=== PATIENT | male | born 1950 | race Caucasian/White ===

== ENCOUNTER → 2020-05-16 09:53 | Outpatient (CLI) | payer MEDICARE, SELFPAY ==
[2020-05-16 10:17] LABS: Add Manual Diff / Slide Review NO; Basophils Absolute Auto 100 /uL (0-100); Basophils Percent Auto 1.1 % (0-2); Eosinophils Absolute Auto 100 /uL (0-450); Eosinophils Percent Auto 1.7 % (2-4); Hematocrit 46.7 % (41-53); Hemoglobin 15.5 g/dL (13.5-17.5); Lymphocytes Absolute Auto 2000 /uL (1100-4500); Lymphocytes Percent Auto 29.4 % (25-40); Mean Corpuscular HGB Conc 33.1 % (30-36); Mean Corpuscular Hemoglobin 30.1 PG (26-34); Mean Corpuscular Volume 90.8 fL (80-100); Monocytes Absolute Auto 700 /uL (0-900); Monocytes Percent Auto 10.6 % (3-14); Neutrophils Absolute Auto 3900 /uL (1500-7000); Neutrophils Percent Auto 57.2 % (50-75); Platelet Count 219 X10^3/uL (150-400); Red Blood Cell Count 5.14 X10^6/uL (4.5-5.9); Red Cell Distribution Width 13.9 % (11.6-14.8); White Blood Cell Count 6.9 X10^3/uL (4.5-11.0)
[2020-05-16 10:27] LABS: Hemoglobin A1C% w Est Avg Glu 5.8 % (4.0-6.0)
[2020-05-16 10:42] LABS: Alanine Aminotransferase 22 IU/L (<50); Albumin 4.7 g/dL (3.5-5.0); Albumin Globulin Ratio 1.4 (1.0-2.8); Alkaline Phosphatase 92 U/L (38-126); Aspartate Aminotransferase 26 IU/L (17-59); BUN Creatinine Ratio 22.6 (6-22); Bilirubin Total 0.8 mg/dL (0.2-1.3); Blood Urea Nitrogen 24 mg/dL (9-20); Calcium 9.7 mg/dL (8.4-10.2); Carbon Dioxide 31 mmol/L (22-32); Chloride 106 mmol/L (98-107); Cholesterol 198 mg/dL (140-199); Estimated Glomerular Filt Rate > 60.0 mL/min (>60); Globulin 3.4 g/dL (1.7-4.1); Glucose 107 mg/dL (80-110); HDL Cholesterol 46 mg/dL (40-60); HEMOLYSIS < 15 (0-50); LDL Cholesterol Calculated 114 mg/dL (<100); Sodium 141 mmol/L (137-145); Total Protein 8.1 g/dL (6.3-8.2); Triglycerides 191 mg/dL (35-150)
[2020-05-16 11:10] LABS: Prostate Specific Antigen Scrn 0.501 ng/mL (0.1-4.0)
== END ==
PROVIDERS: PCP Family Medicine; Referring Provider Family Medicine; Visit Provider Family Medicine
DX: Z00.00 Encounter for general adult medical examination without abnormal findings (principal)
CPT/HCPCS: 36415; 80053; 80061; 83036; 85025; G0103

== ENCOUNTER → 2020-05-25 13:28 | Outpatient (CLI) | payer MEDICARE, SELFPAY ==
[2020-05-26 16:39] LABS: Fecal Immunochemical Test Negative (Negative)
== END ==
PROVIDERS: PCP Family Medicine; Referring Provider Family Medicine; Visit Provider Family Medicine
DX: Z12.11 Encounter for screening for malignant neoplasm of colon (principal)
CPT/HCPCS: 82274

== ENCOUNTER → 2021-07-28 09:38 | Outpatient (CLI) | payer MEDICARE, SELFPAY ==
[2021-07-28 10:35] LABS: COVID19 -Nasal RAPID Negative (Negative)
== END ==
PROVIDERS: PCP Family Medicine; Visit Provider Physician Assistant
DX: Z20.822 Contact with and (suspected) exposure to COVID-19 (principal)
CPT/HCPCS: 87635; C9803

== ENCOUNTER → 2021-07-31 08:07 | Outpatient (CLI) | payer MEDICARE, SELFPAY ==
--- NOTE | 2021-07-31 09:08 | PM.TREADMILL ---
Cardiac Stress Test Report Referral & Results Date Patient Seen: 07/31/21 Time Patient Seen: 08:45 Requesting provider: Quincy Pat Indication: Fatigue Rest ECG: NSR Procedure Note: Today following both written and verbal informed consent, the patient was exercised according to a standard Kristofer protocol. The patient exercised for a total of 9 minutes 38 seconds achieving a maximum heart rate of 161. Patient's maximum systolic blood pressure was 154. This was an estimated 10.1 METs. Normal hemodynamic response to exercise. Excellent exercise capacity (FA I -30% on active scale). No signs or symptoms of angina. No ST deviations. Increasing PVC frequency at peak exercise with doublets seen near the end of the test. Impression: Low probability for ischemia. However, exercise-induced PVCs are an independent risk factor for cardiac causes of mortality. Discussed AHA guidelines for target heart rate and recommended against vigorous all-out exercise at home. Please note: Actual ECG tracings can be found in the PACS system.
== END ==
PROVIDERS: PCP Family Medicine; Referring Provider Family Medicine; Visit Provider Family Medicine
DX: E78.00 Pure hypercholesterolemia, unspecified (principal); I10 Essential (primary) hypertension; R53.83 Other fatigue
CPT/HCPCS: 93016; 93017; 93018

== ENCOUNTER → 2021-12-21 08:37 | Outpatient (CLI) | payer MEDICARE, SELFPAY ==
[2021-12-21 09:28] LABS: Add Manual Diff / Slide Review NO; Basophils Absolute Auto 100 /uL (0-100); Basophils Percent Auto 1.1 % (0-2); Eosinophils Absolute Auto 200 /uL (0-450); Eosinophils Percent Auto 2.4 % (2-4); Lymphocytes Absolute Auto 2000 /uL (1100-4500); Lymphocytes Percent Auto 30.5 % (25-40); Mean Corpuscular HGB Conc 33.3 % (30-36); Mean Corpuscular Hemoglobin 30.1 PG (26-34); Mean Corpuscular Volume 90.6 fL (80-100); Monocytes Absolute Auto 700 /uL (0-900); Monocytes Percent Auto 10.7 % (3-14); Neutrophils Absolute Auto 3600 /uL (1500-7000); Neutrophils Percent Auto 55.3 % (50-75); Platelet Count 208 X10^3/uL (150-400); Red Blood Cell Count 4.97 X10^6/uL (4.5-5.9); Red Cell Distribution Width 13.8 % (11.6-14.8); White Blood Cell Count 6.6 X10^3/uL (4.5-11.0)
[2021-12-21 10:40] LABS: TSH w/ Reflex to FT4 2.57 uIU/mL (0.47-4.68)
[2021-12-21 10:55] LABS: Alanine Aminotransferase 28 IU/L (<50); Albumin 4.6 g/dL (3.5-5.0); Albumin Globulin Ratio 1.6 (1.0-2.8); Alkaline Phosphatase 72 U/L (38-126); Aspartate Aminotransferase 31 IU/L (17-59); BUN Creatinine Ratio 17.6 (6-22); Bilirubin Total 0.8 mg/dL (0.2-1.3); Blood Urea Nitrogen 19 mg/dL (9-20); Calcium 9.4 mg/dL (8.4-10.2); Carbon Dioxide 27 mmol/L (22-32); Chloride 107 mmol/L (98-107); Cholesterol 187 mg/dL (140-199); Estimated Glomerular Filt Rate > 60.0 mL/min (>60); Globulin 2.9 g/dL (1.7-4.1); Glucose 96 mg/dL (80-110); HDL Cholesterol 46 mg/dL (40-60); HEMOLYSIS < 15 (0-50); LDL Cholesterol Calculated 111 mg/dL (<100); Potassium 4.5 mmol/L (3.4-5.1); Sodium 142 mmol/L (137-145); Total Protein 7.5 g/dL (6.3-8.2); Triglycerides 152 mg/dL (35-150)
== END ==
PROVIDERS: PCP Family Medicine; Referring Provider Family Medicine; Visit Provider Family Medicine
DX: I10 Essential (primary) hypertension (principal); E78.00 Pure hypercholesterolemia, unspecified; N40.1 Benign prostatic hyperplasia with lower urinary tract symptoms; R35.1 Nocturia
CPT/HCPCS: 36415; 80053; 80061; 84443; 85025

== ENCOUNTER → 2022-05-14 11:11 | Outpatient (CLI) | payer MEDICARE, SELFPAY ==
[2022-05-14 14:04] LABS: COVID19 -Nasal RAPID Negative (Negative)
== END ==
PROVIDERS: PCP Family Medicine; Visit Provider Surgery
DX: Z20.822 Contact with and (suspected) exposure to COVID-19 (principal); Z01.812 Encounter for preprocedural laboratory examination
CPT/HCPCS: 87635; C9803

== ENCOUNTER 2022-05-15 07:15 | Day surgery (SDC) | payer MEDICARE, SELFPAY ==
[2022-05-11 11:36] VITALS: BMI 29.7
--- NOTE | 2022-05-15 | PATH_ITS ---
[facility] Accession Number: [id number] . 01 Material submitted: . back - RIGHT UPPER BACK MASS . 01 Clinical history: . EXCISIONAL BX OF R BACK MASS . 01 Diagnosis: Right Upper Back, Excision: Epidermal inclusion cyst. MRV 05/18/2022 1544 Local . 01 Electronically signed: . Clayton Phillips MD, Dermatopathologist NPI- [id number] . 01 Gross description: . RIGHT UPPER BACK MASS: Received in formalin is 1 fragment of bradley soft tissue measuring 3.0 x 3.0 x 2.8 cm. Tissue is inked. Specimen is sectioned and submitted in call center representative sections in 1 cassette. /[facility] 05/15/2022 2343 Local . 01 Pathologist provided ICD-10: L72.0 . 01 CPT . 513405 Specimen Comment: A courtesy copy of this report has been sent to [phone] Performed at: 01 [facility] [address] [place] [address], [place], [place] [id number] MD Jarred Aguilar MD Phone: [phone]
[2022-05-15 07:32] VITALS: BP 143/87; PULSE 86; RESP 20; TEMP 36.2; O2SAT 98; BMI 29.7
[2022-05-15] MEDS: LACTATED RINGERS 1,000 ML 42 ML IV (07:45)
--- NOTE | 2022-05-15 08:18 | PM.PREOP ---
Pre-operative Note COVID-19 COVID-19 status: Negative Result date/Date tested (Pos, Neg/Pending): 05/14/22 Interval Note History & Physical reviewed/Exam performed by Physician: Yes Changes to H&P: No ASA Class (for procedural sedation): II
[2022-05-15] MEDS: CEFAZOLIN 2 GM/100 ML PREMIX 100 ML IV (08:53)
--- NOTE | 2022-05-15 09:01 | SUR.OPER ---
Left Lateral on a ring bag, head on pillow, gel axillary roll in place, bottom leg bent with gel pad under knee to foot, upper leg straight and supported with pillows. Upper arm supported by 2 pillows and secured over bottom arm to padded arm board. Gel pad placed under left arm. Safety belt at hip, tape over blanket lower legs.
[2022-05-15] MEDS: LIDOCAINE 1% W/EPI 20 ML INJ (09:09)
[2022-05-15 10:01] VITALS: BP 141/79; PULSE 79; RESP 15; TEMP 36.3; O2SAT 96
--- NOTE | 2022-05-15 10:01 | P.OP_ITS ---
Operative Date/Time/Diagnoses Date of procedure: 05/15/22 Time of procedure: 10:01 Pre-op diagnosis: Right upper back mass Procedure & Clinicians Procedure: Excisional biopsy of right upper back mass Same procedure as scheduled: Yes Surgeon: Martin Garcia Operative Notes Procedure in detail: The patient was brought to the operating room and general anesthesia was induced via LMA. He received Ancef. Once he was asleep he was repositioned to the left lateral decubitus position with the right side. Back was prepped and draped in the usual fashion and a time-out was performed. Lidocaine with epinephrine was injected into the skin and subcutaneous adipose tissue over the mass. A 10 cm axial incision was made over the mass. We started to dissect the mass free from dermis and subcutaneous adipose tissue. We did perforate the mass in a few different spots and some thick, foul-smelling, cheesy substance extruded suggesting that the mass was a sebaceous cyst. Once the mass was completely excised and passed off the field we injected additional lidocaine with epinephrine into the deep aspect of the wound. Few bleeding points were cauterized. The wound cavity was irrigated with saline. Hemostasis was observed. We then closed the incision with multiple interrupted 3-0 Vicryl dermal sutures followed by a running 4 Monocryl subcuticular closure. Steri- Strips and Telfa were applied over wound. EBL: 10 mL The patient was awakened and brought to recovery. Post-operative Condition: stable Disposition: PACU
[2022-05-15 10:06] VITALS: BP 130/75; PULSE 73; RESP 14; O2SAT 94
[2022-05-15 10:11] VITALS: BP 122/72; PULSE 74; RESP 14; O2SAT 94
[2022-05-15 10:16] VITALS: BP 130/75; PULSE 71; RESP 16; O2SAT 95
[2022-05-15 10:21] VITALS: BP 117/77; PULSE 73; RESP 16; O2SAT 100
== END 2022-05-15 10:47 | disposition home or self-care (01) ==
PROVIDERS: PCP Family Medicine; Referring Provider Surgery; Visit Provider Surgery
PROC: (CPT 11406; principal; 2022-05-15 08:45)
DX: L72.0 Epidermal cyst (principal); I10 Essential (primary) hypertension; R20.8 Other disturbances of skin sensation
CPT/HCPCS: 11406; 12034; 00400; J0690; J1100; J1885; J2405; J2704

== ENCOUNTER → 2022-11-23 10:30 | Outpatient (CLI) | payer MEDICARE, SELFPAY ==
[2022-11-23 12:40] LABS: Add Manual Diff / Slide Review NO; Basophils Absolute Auto 0 /uL (0-100); Basophils Percent Auto 0.7 % (0-2); Eosinophils Absolute Auto 100 /uL (0-450); Eosinophils Percent Auto 1.7 % (2-4); Hemoglobin 16.1 g/dL (13.5-17.5); Lymphocytes Absolute Auto 2200 /uL (1100-4500); Lymphocytes Percent Auto 30.5 % (25-40); Mean Corpuscular HGB Conc 32.8 % (30-36); Mean Corpuscular Hemoglobin 29.9 PG (26-34); Monocytes Absolute Auto 800 /uL (0-900); Monocytes Percent Auto 10.7 % (3-14); Neutrophils Absolute Auto 4100 /uL (1500-7000); Neutrophils Percent Auto 56.4 % (50-75); Platelet Count 244 X10^3/uL (150-400); Red Blood Cell Count 5.39 X10^6/uL (4.5-5.9); Red Cell Distribution Width 13.6 % (11.6-14.8); White Blood Cell Count 7.2 X10^3/uL (4.5-11.0)
[2022-11-23 12:48] LABS: Alanine Aminotransferase 28 IU/L (<50); Albumin 4.7 g/dL (3.5-5.0); Albumin Globulin Ratio 1.3 (1.0-2.8); Alkaline Phosphatase 94 U/L (38-126); Aspartate Aminotransferase 29 IU/L (17-59); BUN Creatinine Ratio 16.4 (6-22); Bilirubin Total 0.8 mg/dL (0.2-1.3); Blood Urea Nitrogen 18 mg/dL (9-20); Calcium 9.6 mg/dL (8.4-10.2); Carbon Dioxide 29 mmol/L (22-32); Chloride 102 mmol/L (98-107); Cholesterol 211 mg/dL (140-199); Estimated Glomerular Filt Rate > 60 mL/min (>60); Globulin 3.7 g/dL (1.7-4.1); Glucose 96 mg/dL (80-110); HDL Cholesterol 47 mg/dL (40-60); HEMOLYSIS 33 (0-50); LDL Cholesterol Calculated 126 mg/dL (<100); Potassium 4.7 mmol/L (3.4-5.1); Sodium 140 mmol/L (137-145); Total Protein 8.4 g/dL (6.3-8.2); Triglycerides 192 mg/dL (35-150); Uric Acid 5.5 mg/dL (3.5-8.5)
[2022-11-23 13:13] LABS: Prostate Specific Antigen Scrn 0.738 ng/mL (0.1-4.0)
[2022-11-23 13:18] LABS: TSH w/ Reflex to FT4 2.96 uIU/mL (0.47-4.68)
== END ==
PROVIDERS: PCP Family Medicine; Referring Provider Family Medicine; Visit Provider Family Medicine
DX: Z00.00 Encounter for general adult medical examination without abnormal findings (principal); E78.00 Pure hypercholesterolemia, unspecified; Z12.5 Encounter for screening for malignant neoplasm of prostate; I10 Essential (primary) hypertension; N40.1 Benign prostatic hyperplasia with lower urinary tract symptoms; R35.1 Nocturia; Z85.828 Personal history of other malignant neoplasm of skin
CPT/HCPCS: 36415; 80053; 80061; 84443; 84550; 85025; G0103

== ENCOUNTER 2023-02-07 12:36 | Day surgery (SDC) | payer MEDICARE, SELFPAY ==
--- NOTE | 2023-02-07 | PATH_ITS ---
[facility] Accession Number: [id number] No. of containers..02 Tissue . 01 Material submitted: . PART A: cecum - CECAL POLYP PART B: colon - ASCENDING POLYP . 01 Diagnosis: A. Cecum, Polypectomy: Sessile serrated adenoma. . B. Ascending Colon, Polypectomy: Colonic mucosa with no diagnostic abnormality, consistent with polypoid redundancy. Additional levels were examined. Negative for dysplasia and malignancy. [facility] 02/13/2023 1454 Local . 01 Electronically signed: . Hanane Sharpe MD, Pathologist NPI- [id number] . 01 Gross description: . Part A: CECAL POLYP: Received in formalin is 1 fragment(s) of bradley, soft tissue measuring 0.5 x 0.4 x 0.1 cm submitted entirely in 1 cassette(s) Part B: ASCENDING POLYP: Received in formalin is 1 fragment(s) of bradley, soft tissue measuring 0.2 x 0.2 x 0.2 cm submitted entirely in 1 cassette(s) /[facility] 02/08/2023 1329 Local . 01 Pathologist provided ICD-10: D12.0 . 01 CPT . 274933, 031665 Specimen Comment: A courtesy copy of this report has been sent to [phone] Performed at: 01 [facility] [address] [place] [address], [place], [place] [id number] MD Jarred Aguilar MD Phone: [phone]
[2023-02-07 12:53] VITALS: BP 154/91; PULSE 83; RESP 19; TEMP 36.1; O2SAT 96; BMI 29.0
[2023-02-07] MEDS: LACTATED RINGERS 1,000 ML 42 ML IV (13:04)
--- NOTE | 2023-02-07 13:19 | PM.HP.1 ---
History of Present Illness History of Present Illness Date Patient Seen: 02/07/23 Time Patient Seen: 13:19 Chief complaint: Colonoscopy Narrative: Aakash is here for his colonoscopy. He thinks it has been over 10 years since his last one. He does not believe he has ever had polyps removed. He has no known family history of colon cancer. [facility] Medical History (Updated 02/07/23 @ 13:20 by Martin Garcia MD) Ankle pain (2011) Chickenpox (~1949) COVID-19 virus infection (~02/2022) Erectile dysfunction Gout (2016) Gout History of basal cell carcinoma Hypertension Left knee pain Measles Plantar warts (~1979) Sebaceous cyst Skin cancer (2012) Well adult exam Surgical History Hx of knee surgery (~2011) Family History Mother Age: 92 Heart disease High cholesterol Father No problems noted. Grandmother No problems noted. Social History household members: spouse Smoking Status: Never smoker alcohol intake: current Meds Home Medications and Allergies Home Medications Medication Instructions Recorded Confirmed Type losartan 25 mg tablet 25 mg PO DAILY #90 tabs 09/19/22 02/07/23 Rx tamsulosin 0.4 mg capsule (Flomax) 0.4 mg PO BEDTIME #90 caps 09/19/22 02/07/23 Rx sildenafil 100 mg tablet 100 mg PO DAILY PRN sexual 11/30/22 02/07/23 Rx activity #30 tabs sodium sul 1.479 gram-potas ch See Rx Instructions PO PER PKG DIR 01/04/23 Rx 0.188 gram-magnes sul 0.225 gram #24 tabs tablet (Sutab) Allergies Allergy/AdvReac Type Severity Reaction Status Date / Time No Known Drug Allergies Allergy Verified 02/07/23 13:05 Exam Vital Signs (past 8 hours): - 02/07/23 12:53 Temperature 96.9 F L Pulse Rate 83 Respiratory Rate 19 Blood Pressure 154/91 H Pulse Oximetry 96 Oxygen Delivery Method Room Air Oxygen Delivery Method Room Air Const General: healthy appearing Assessment & Plan Assessment and plan (1) Colon cancer screening: Status: Acute Plan 72-year-old man here for colonoscopy. No family history. Reviewed the risks and benefits and he would like to proceed.
[2023-02-07 14:32] VITALS: BP 92/60; PULSE 67; RESP 14; TEMP 36.2; O2SAT 99
--- NOTE | 2023-02-07 14:35 | PM.OP.COLON ---
Operative Date/Time/Diagnoses Date of procedure: 02/07/23 Time of procedure: 14:36 Pre-op diagnosis: Colon cancer screening Post-op diagnosis: same Procedure & Clinicians Study performed: Colonoscopy Same procedure as scheduled: Yes Surgeon: Martin Garcia Procedure Notes Procedure in detail: Surgeon: Martin Garcia MD Anesthesia: Davian Man MD Procedure: The patient was brought to the endoscopy suite, placed in left lateral decubitus position. The patient was connected to monitoring devices. A time-out was performed. Sedation was administered. Once the patient was adequately sedated, a digital rectal exam was performed and was normal. The scope was then inserted and advanced to the cecum where the appendiceal orifice was identified and photographed. The scope was then slowly withdrawn over greater than 6 minutes. The mucosa was thoroughly inspected. There was a 5 mm polyp in the cecum removed with a cold snare. There was a 5 mm polyp in the ascending colon removed with a cold snare. The rest of the colon was normal. The scope was retroflexed in the rectum. No other abnormalities were seen. The scope was straightened and removed. The patient was awakened and brought to recovery. Scope withdrawal time: 13 minutes Sedation time: 16 minutes EBL: 3 mL Findings: A 5 mm polyp in the cecum and a 5 mm polyp in the ascending colon Post-procedure Disposition: PACU
[2023-02-07 14:37] VITALS: BP 105/76; PULSE 65; RESP 17; O2SAT 93
[2023-02-07 14:43] VITALS: BP 116/80; PULSE 70; RESP 17; O2SAT 92
[2023-02-07 14:47] VITALS: BP 116/85; PULSE 62; RESP 19; TEMP 36.6; O2SAT 95
[2023-02-07 14:50] VITALS: BP 110/85; PULSE 62; RESP 22; O2SAT 97
== END 2023-02-07 15:00 | disposition home or self-care (01) ==
PROVIDERS: PCP Family Medicine; Referring Provider Surgery; Visit Provider Surgery
PROC: 0DJD8ZZ Inspection of Lower Intestinal Tract, Via Natural or Artificial Opening Endoscopic (ICD-10-PCS; CPT 45378; principal; 2023-02-07 13:45)
DX: Z12.11 Encounter for screening for malignant neoplasm of colon (principal); D12.0 Benign neoplasm of cecum
CPT/HCPCS: 45385; J2704; J3010

== ENCOUNTER → 2023-05-09 | Outpatient (CLI) | payer MEDICARE, SELFPAY ==
--- NOTE | 2023-05-09 10:11 | DI.RAD.S_ITS ---
PROCEDURE: XR LUMBAR SPINE 2-3V INDICATIONS: worsening low back pain TECHNIQUE: 3 views of the lumbar spine were acquired. COMPARISON: None. FINDINGS: Bones: 5 xgv-[id number]-npylpon vertebrae are present. There is normal bony alignment. Moderate degenerative changes at L5-S1 and facet hypertrophy. No vertebral body compression fractures. No suspicious bony lesions. Soft tissues: Overlying bowel gas pattern is normal. Vascular calcifications are present. IMPRESSION: No acute osseous abnormality. Moderate degenerative changes at L5-S1. Approved by: Nila Cam M.D. on 05/20/2023 at 15:24
== END ==
PROVIDERS: PCP Family Medicine; Referring Provider Family Medicine; Visit Provider Family Medicine
DX: M54.50 Low back pain, unspecified (principal); M47.817 Spondylosis without myelopathy or radiculopathy, lumbosacral region
CPT/HCPCS: 72100

== ENCOUNTER → 2023-12-17 09:07 | Outpatient (CLI) | payer MEDICARE, SELFPAY ==
[2023-12-17 10:09] LABS: Add Manual Diff / Slide Review NO; Basophils Absolute Auto 100 /uL (0-100); Basophils Percent Auto 1.1 % (0-2); Eosinophils Absolute Auto 100 /uL (0-450); Hematocrit 45.1 % (41-53); Hemoglobin 15.2 g/dL (13.5-17.5); Lymphocytes Absolute Auto 2000 /uL (1100-4500); Lymphocytes Percent Auto 32.8 % (25-40); Mean Corpuscular HGB Conc 33.8 % (30-36); Mean Corpuscular Hemoglobin 30.7 PG (26-34); Monocytes Absolute Auto 600 /uL (0-900); Monocytes Percent Auto 10.7 % (3-14); Neutrophils Absolute Auto 3200 /uL (1500-7000); Neutrophils Percent Auto 53.4 % (50-75); Platelet Count 223 X10^3/uL (150-400); Red Blood Cell Count 4.95 X10^6/uL (4.5-5.9); Red Cell Distribution Width 13.5 % (11.6-14.8)
[2023-12-17 10:43] LABS: Alanine Aminotransferase 30 IU/L (<50); Albumin 4.3 g/dL (3.5-5.0); Albumin Globulin Ratio 1.4 (1.0-2.8); Alkaline Phosphatase 84 U/L (38-126); Aspartate Aminotransferase 31 IU/L (17-59); BUN Creatinine Ratio 16.7 (6-22); Bilirubin Total 0.9 mg/dL (0.2-1.3); Blood Urea Nitrogen 18 mg/dL (9-20); Calcium 9.4 mg/dL (8.4-10.2); Carbon Dioxide 25 mmol/L (22-32); Chloride 109 mmol/L (98-107); Estimated Glomerular Filt Rate > 60 mL/min (>60); Globulin 3.1 g/dL (1.7-4.1); Glucose 92 mg/dL (80-110); HEMOLYSIS < 15 (0-50); Potassium 4.4 mmol/L (3.4-5.1); Sodium 140 mmol/L (137-145); Total Protein 7.4 g/dL (6.3-8.2); Uric Acid 5.5 mg/dL (3.5-8.5)
[2023-12-17 11:13] LABS: Prostate Specific Antigen Scrn 0.833 ng/mL (0.1-4.0)
== END ==
PROVIDERS: PCP Family Medicine; Referring Provider Family Medicine; Visit Provider Family Medicine
DX: R35.1 Nocturia (principal); Z12.5 Encounter for screening for malignant neoplasm of prostate; N40.1 Benign prostatic hyperplasia with lower urinary tract symptoms; I10 Essential (primary) hypertension; E78.00 Pure hypercholesterolemia, unspecified; M10.9 Gout, unspecified
CPT/HCPCS: 36415; 80053; 84550; 85025; G0103

== ENCOUNTER → 2024-02-14 15:22 | Outpatient (CLI) | payer MEDICARE, SELFPAY ==
--- NOTE | 2024-02-14 15:24 | DI.RAD.S_ITS ---
PROCEDURE: XR SHOULDER RT MIN 2V INDICATIONS: R shoulder xray TECHNIQUE: 3 views of the shoulder were acquired. COMPARISON: None. FINDINGS: Bones: No fractures or dislocations. AC joint hypertrophy with moderate downward going component. No suspicious bony lesions. Visualized ribs appear intact. Soft tissues: No suspicious soft tissue calcifications. IMPRESSION: AC joint hypertrophy with moderate downward going component. No acute bony abnormality. Dictated by: Vincenzo Prince M.D. on 02/14/2024 at 17:52 Approved by: Vincenzo Prince M.D. on 02/14/2024 at 17:53
== END ==
PROVIDERS: PCP Family Medicine; Referring Provider Family Medicine; Visit Provider Family Medicine
DX: M25.511 Pain in right shoulder (principal)
CPT/HCPCS: 73030

== ENCOUNTER 2024-07-14 13:45 | Outpatient (RCR) | payer MEDICARE, SELFPAY ==
--- NOTE | 2024-05-27 17:34 | PT.OIE ---
Current Diagnoses Pain in right shoulder (05/27/24) Stiffness of right shoulder, not elsewhere classified (05/27/24) Other shoulder lesions, right shoulder (05/27/24) Past Medical History (Last Reviewed 02/14/24 @ 15:09 by Quincy Pat DO) Ankle pain (2011) Chickenpox (~1950) COVID-19 virus infection (~02/2022) Erectile dysfunction Gout (2016) Gout History of basal cell carcinoma Hypertension Left knee pain Low back pain Measles Plantar warts (~1979) Right rotator cuff tendinitis Sebaceous cyst Skin cancer (2012) Testicular pain, right Well adult exam Past Surgical History (Last Reviewed 02/14/24 @ 15:09 by Quincy Pat DO) Hx of knee surgery (~2011) Visit Care Team Role Provider Type Quincy Pat DO Attending Provider Physician Family Provider Primary Care Provider Referring Provider Specialty: Family Practice Address: [address] [place] [address] Email: [email or web address] Physical Therapy Initial Evaluation PT-OP-A Visit Information Start: 05/27/24 16:54 Freq: Status: Active Protocol: Document 05/27/24 13:45 DCW (Rec: 05/27/24 17:25 [facility] [id number]) Out-Patient Physical Therapy Visit Information Visit Information Visit Type Initial Evaluation Visit Start Time 13:45 Visit Stop Time 14:30 Visit Number 1 Number of PROSTHETIC AIDE Visits 0 Evaluation Information Evaluation Date 05/27/24 PT-OP-B Current Condition Start: 05/27/24 16:54 Freq: Status: Active Protocol: Document 05/27/24 13:45 DCW (Rec: 05/27/24 17:25 [facility] [id number]) Current Condition History of Current Condition Onset Date Six month history Current Complaints Right shoulder pain History of Current Condition Pt is a 74 year old male presenting with a six month history of right shoulder pain . Pt reports he doesn't remember a specific injury, but does note around the time his pain began, he had been working on tearing down and putting back up a car port. Shoulder has improved a bit since the pain began in October, but is still quite limited with overhead motion, and notes his shoulder limits his golf swing. Admits that even lifting a coffee cup with his right arm is a bit of a struggle. Pain and stiffness is worse in the morning, admits that he has to use his left hand to lift his right arm up, but it eases up throughout the day, and he gets more use out of it. Prior Treatments and Tests Shoulder x-ray: IMPRESSION: AC joint hypertrophy with moderate downward going component. No acute bony abnormality. per Vincenzo Prince M.D. on 02/14/2024 Treatment Goals Patient/Caregiver Goals Improve R shoulder function PT-OP-C Subjective Start: 05/27/24 16:54 Freq: Status: Active Protocol: Document 05/27/24 13:45 DCW (Rec: 05/27/24 17:25 DCW [id number]) OP-PT Subjective Patient Comments Patient Comments It's a little painful to the front, but it's worse lifting to the side. Patient Reported Progress Improving Patient Questionnaires Quick Dash- Upper Extremity Quick Dash UE Score 20.45% Quick Dash UE Impairment 20 to 39% Impaired (Score 20- 39) PT-OP-E Functional Tests Start: 05/27/24 16:54 Freq: Status: Active Protocol: Document 05/27/24 13:45 DCW (Rec: 05/27/24 17:25 DCW [id number]) Functional Tests Apley's Scratch Test Action 1- Left Posterior opposite shoulder Action 1- Right Lateral opposite shoulder Action 2- Left T4 Action 2- Right T4 Action 3- Left T6 Action 3- Right T9 PT-OP-K Range of Motion Start: 05/27/24 16:54 Freq: Status: Active Protocol: Document 05/27/24 13:45 DCW (Rec: 05/27/24 17:25 DCW [id number]) Shoulder Goniometric Range of Motion Shoulder Right Passive Testing Position Supine Flexion 160 Abduction 160 External Rotation at 45 degrees 45 Abduction Internal Rotation 55 Right Active Testing Position Sitting Flexion 110 Abduction 103 External Rotation at 0 degrees Abduction 66 Internal Rotation Behind Back (text) T9 Left Active Testing Position Sitting Flexion 147 Abduction 139 External Rotation at 0 degrees Abduction 62 Internal Rotation Behind Back (text) T6 PT-OP-L Special Tests Start: 05/27/24 16:54 Freq: Status: Active Protocol: Document 05/27/24 13:45 DCW (Rec: 05/27/24 17:25 [facility] [id number]) Special Tests Shoulder Special Tests Sulcus Test Results Negative Passive ER Rotator Cuff Test Results Negative Painful Arc Test Results Positive R Lift-Off Rotator Cuff Test Results Positive R Grind Labrum Test Results Negative [place] Impingement Test Results Negative Empty Can Test Results Negative Drop Arm Rotator Cuff Test Results Positive R Clunk Test Test Results Negative Belly Press Test Results Negative Apprehension Test Test Results Positive R PT-OP-M Strength Start: 05/27/24 16:54 Freq: Status: Active Protocol: Document 05/27/24 13:45 DCW (Rec: 05/27/24 17:25 [facility] [id number]) Shoulder Strength Shoulder Manual Muscle Testing Right Flexion 3- Fair- Abduction (C5) 3- Fair- External Rotation 3 Fair Internal Rotation 5 Normal Left Flexion 4 Good Abduction (C5) 4 Good External Rotation 5 Normal Internal Rotation 5 Normal PT-OP-Q Treatments Start: 05/27/24 16:54 Freq: Status: Active Protocol: Document 05/27/24 13:45 DCW (Rec: 05/27/24 17:25 [facility] [id number]) Therapeutic Exercises Standing Exercises Wall slides Standing Exercise Name Wall slide Side right Abduction Standing Exercise Name Shoulder Abduction Side right Resistance Lv 3 Comments Pain-free ROM Flexion Standing Exercise Name Shoulder Flexion Side right Resistance Lv 3 Comments Pain-free ROM Extension Standing Exercise Name Shoulder Extension Side bilateral Resistance Lv 3 Rows Standing Exercise Name Rows Side bilateral Resistance Lv 3 PT-OP-T Assessment and Plan Start: 05/27/24 16:54 Freq: Status: Active Protocol: Document 05/27/24 13:45 DCW (Rec: 05/27/24 17:34 [facility] [id number]) Physical Therapy Assessment Rehab Potential Rehabilitation Potential Good Evaluation Complexity Number of Personal Factors/Comorbidities 1-2 Number of Body Systems Impaired 4 or More Clinical Presentation at Evaluation Stable Impairments Impairments Activity Tolerance,Functional Activities,Functional Mobility ,Pain,ROM,Strength Goals Three Impairment Pt displays weakness in R shoulder, with MMT 3-/5 in flexion and abduction Penitentiary Goal (LTG) Pt to demonstrate right shoulder MMT of at least 4/5 with flexion, abduction, and external rotation in order to improve right GH joint stability LTG Duration 07/27/24 Two Impairment Right shoulder AROM limited to 110? flexion and 103? abduction Unloader Goal (LTG) Pt to improve pain-free right shoulder ROM to >120? 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 LTG Duration 07/27/24 One Impairment Pt does not have an appropriate home exercise program Short Term Goal (STG) Pt to be independent and compliant with an appropriate HEP STG Duration 06/27/24 Assessment Summary Assessment Pt presents with signs and symptoms consistent with a referring diagnosis. Special testing today shows potential for involvement of supraspinatus, with positive drop arm and painful arc tests , as well as more limitations to right shoulder abduction. 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 If pt does not progress as expected, my benefit from advanced axial imaging in order to rule in or rule out potential soft tissue damage. Physical Therapy Plan Frequency and Duration Frequency of Treatment 2x/Week Plan of Care Start Date 05/27/24 Plan of Care End Date 07/27/24 Therapeutic Interventions Therapeutic Interventions Home Exercise Program,Joint Mobilizations,Manual Therapy, Neuromuscular Re-education, Patient/Caregiver Education, Self-Care/Home Management,Soft Tissue Mobilization, Therapeutic Activities, Therapeutic Exercises Modalities Cold Pack/Ice Massage,Electric Stimulation,Hot Packs, Ultrasound Next Visit Focus/Plan Next Note Type Treatment Note Next Visit Plan PROM, AROM, shoulder strengthening, joint stabilization
--- NOTE | 2024-05-27 17:35 | PT.OPPOC ---
Physical, Occupational & Speech Therapy At [facility] Current Diagnoses Pain in right shoulder (05/27/24) Stiffness of right shoulder, not elsewhere classified (05/27/24) Other shoulder lesions, right shoulder (05/27/24) Visit Care Team Role Provider Type Quincy Pat DO Attending Provider Physician Family Provider Primary Care Provider Referring Provider Specialty: [facility] Practice Address: [address] [place] [address], [facility] Email: [email or web address] Plan Of Care PT-OP-B Current Condition Start: 05/27/24 16:54 Freq: Status: Active Protocol: Document 05/27/24 13:45 DCW (Rec: 05/27/24 17:25 DCW [id number]) Current Condition History of Current Condition Onset Date Six month history Current Complaints Right shoulder pain History of Current Condition Pt is a 74 year old male presenting with a six month history of right shoulder pain . Pt reports he doesn't remember a specific injury, but does note around the time his pain began, he had been working on tearing down and putting back up a car port. Shoulder has improved a bit since the pain began in October, but is still quite limited with overhead motion, and notes his shoulder limits his golf swing. Admits that even lifting a coffee cup with his right arm is a bit of a struggle. Pain and stiffness is worse in the morning, admits that he has to use his left hand to lift his right arm up, but it eases up throughout the day, and he gets more use out of it. Prior Treatments and Tests Shoulder x-ray: IMPRESSION: AC joint hypertrophy with moderate downward going component. No acute bony abnormality. per Vincenzo Prince M.D. on 02/14/2024 Treatment Goals Patient/Caregiver Goals Improve R shoulder function PT-OP-T Assessment and Plan Start: 05/27/24 16:54 Freq: Status: Active Protocol: Document 05/27/24 13:45 DCW (Rec: 05/27/24 17:34 DCW [id number]) Physical Therapy Assessment Rehab Potential Rehabilitation Potential Good Evaluation Complexity Number of Personal Factors/Comorbidities 1-2 Number of Body Systems Impaired 4 or More Clinical Presentation at Evaluation Stable Impairments Impairments Activity Tolerance,Functional Activities,Functional Mobility ,Pain,ROM,Strength Goals Three Impairment Pt displays weakness in R shoulder, with MMT 3-/5 in flexion and abduction Retirement Goal (LTG) Pt to demonstrate right shoulder MMT of at least 4/5 with flexion, abduction, and external rotation in order to improve right GH joint stability LTG Duration 07/27/24 Two Impairment Right shoulder AROM limited to 110? flexion and 103? abduction Cutter Down Goal (LTG) Pt to improve pain-free right shoulder ROM to >120? 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 LTG Duration 07/27/24 One Impairment Pt does not have an appropriate home exercise program Short Term Goal (STG) Pt to be independent and compliant with an appropriate HEP STG Duration 06/27/24 Assessment Summary Assessment Pt presents with signs and symptoms consistent with a referring diagnosis. Special testing today shows potential for involvement of supraspinatus, with positive drop arm and painful arc tests , as well as more limitations to right shoulder abduction. 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 If pt does not progress as expected, my benefit from advanced axial imaging in order to rule in or rule out potential soft tissue damage. Physical Therapy Plan Frequency and Duration Frequency of Treatment 2x/Week Plan of Care Start Date 05/27/24 Plan of Care End Date 07/27/24 Therapeutic Interventions Therapeutic Interventions Home Exercise Program,Joint Mobilizations,Manual Therapy, Neuromuscular Re-education, Patient/Caregiver Education, Self-Care/Home Management,Soft Tissue Mobilization, Therapeutic Activities, Therapeutic Exercises Modalities Cold Pack/Ice Massage,Electric Stimulation,Hot Packs, Ultrasound Next Visit Focus/Plan Next Note Type Treatment Note Next Visit Plan PROM, AROM, shoulder strengthening, joint stabilization Plan of Care Dates Plan of Care Start Date 05/27/24 Plan of Care End Date 07/27/24 Electronically Signed by: Fortino Vila, PT 05/27/24 8547 If you are in agreement with this Plan of Care, please return a signed and dated copy. I have reviewed this Plan of Care and certify that the skilled therapy services above are required to meet the patient?s needs. Physician Signature Date Printed Name and Credentials Clinical Instructor Signature Printed Name and Credentials
--- NOTE | 2024-05-29 10:29 | PT.OTN ---
Current Diagnoses Pain in right shoulder (05/29/24) Stiffness of right shoulder, not elsewhere classified (05/29/24) Other shoulder lesions, right shoulder (05/29/24) Physical Therapy Treatment Note PT-OP-A Visit Information Start: 05/27/24 16:54 Freq: Status: Active Protocol: Document 05/29/24 09:45 DCW (Rec: 05/29/24 10:29 DCW [id number]) Out-Patient Physical Therapy Visit Information Visit Information Visit Type Treatment Note Visit Start Time 09:45 Visit Stop Time 10:30 Visit Number 2 Number of ELECTRICAL MAINTENANCE TECHNICIAN Visits 0 Evaluation Information Evaluation Date 05/27/24 PT-OP-B Current Condition Start: 05/27/24 16:54 Freq: Status: Active Protocol: Document 05/27/24 13:45 DCW (Rec: 05/27/24 17:25 DCW [id number]) Current Condition History of Current Condition Onset Date Six month history Current Complaints Right shoulder pain History of Current Condition Pt is a 74 year old male presenting with a six month history of right shoulder pain . Pt reports he doesn't remember a specific injury, but does note around the time his pain began, he had been working on tearing down and putting back up a car port. Shoulder has improved a bit since the pain began in October, but is still quite limited with overhead motion, and notes his shoulder limits his golf swing. Admits that even lifting a coffee cup with his right arm is a bit of a struggle. Pain and stiffness is worse in the morning, admits that he has to use his left hand to lift his right arm up, but it eases up throughout the day, and he gets more use out of it. Prior Treatments and Tests Shoulder x-ray: IMPRESSION: AC joint hypertrophy with moderate downward going component. No acute bony abnormality. per Vincenzo Prince M.D. on 02/14/2024 Treatment Goals Patient/Caregiver Goals Improve R shoulder function PT-OP-C Subjective Start: 05/27/24 16:54 Freq: Status: Active Protocol: Document 05/29/24 09:45 DCW (Rec: 05/29/24 10:29 DCW [id number]) OP-PT Subjective Patient Comments Patient Comments Pt notes his shoulder was bothering him quite a bit last night, feeling slightly better today. Notes HEP doesn' t seem to bother him much. PT-OP-E Functional Tests Start: 05/27/24 16:54 Freq: Status: Active Protocol: Document 05/27/24 13:45 DCW (Rec: 05/27/24 17:25 DCW [id number]) Functional Tests Apley's Scratch Test Action 1- Left Posterior opposite shoulder Action 1- Right Lateral opposite shoulder Action 2- Left T4 Action 2- Right T4 Action 3- Left T6 Action 3- Right T9 PT-OP-K Range of Motion Start: 05/27/24 16:54 Freq: Status: Active Protocol: Document 05/27/24 13:45 DCW (Rec: 05/27/24 17:25 DCW [id number]) Shoulder Goniometric Range of Motion Shoulder Right Passive Testing Position Supine Flexion 160 Abduction 160 External Rotation at 45 degrees 45 Abduction Internal Rotation 55 Right Active Testing Position Sitting Flexion 110 Abduction 103 External Rotation at 0 degrees Abduction 66 Internal Rotation Behind Back (text) T9 Left Active Testing Position Sitting Flexion 147 Abduction 139 External Rotation at 0 degrees Abduction 62 Internal Rotation Behind Back (text) T6 PT-OP-L Special Tests Start: 05/27/24 16:54 Freq: Status: Active Protocol: Document 05/27/24 13:45 DCW (Rec: 05/27/24 17:25 DCW [id number]) Special Tests Shoulder Special Tests Sulcus Test Results Negative Passive ER Rotator Cuff Test Results Negative Painful Arc Test Results Positive R Lift-Off Rotator Cuff Test Results Positive R Grind Labrum Test Results Negative [place] Impingement Test Results Negative Empty Can Test Results Negative Drop Arm Rotator Cuff Test Results Positive R Clunk Test Test Results Negative Belly Press Test Results Negative Apprehension Test Test Results Positive R PT-OP-M Strength Start: 05/27/24 16:54 Freq: Status: Active Protocol: Document 05/27/24 13:45 DCW (Rec: 05/27/24 17:25 DCW [id number]) Shoulder Strength Shoulder Manual Muscle Testing Right Flexion 3- Fair- Abduction (C5) 3- Fair- External Rotation 3 Fair Internal Rotation 5 Normal Left Flexion 4 Good Abduction (C5) 4 Good External Rotation 5 Normal Internal Rotation 5 Normal PT-OP-Q Treatments Start: 05/27/24 16:54 Freq: Status: Active Protocol: Document 05/29/24 09:45 DCW (Rec: 05/29/24 10:29 DCW [id number]) Cardio Equipment Upper Body Ergometer (UBE) Duration (Minutes) 5 RPM 60 Seat Position 13 Height 3 Therapeutic Exercises Supine Exercises Serratus Punch Supine Exercise Name Serratus Punch Side bilateral Flexion Supine Exercise Name Supine flexion /c PVC Side bilateral Sitting Exercises Chest Press Sitting Exercise Name Chest press /c PVC Side bilateral Resistance 4# PROM Sitting Exercise Name Pulleys - Flexion, Abduction Side bilateral Standing Exercises ER Standing Exercise Name ER - Isometric resistance Side right Resistance Lv 3 Other Exercises Resisted Side-stepping Other Exercise Name Upper Extremity side-stepping @ rail Resistance Green loop Manual Therapy Treatment Consent Patient gave verbal consent for manual Yes treatment Soft Tissue Mobilization R Shoulder Body Location Parascapulars, Upper Trap, Pec Mobilization Type Strain/Counterstrain,Strumming ,Sustained Pressure,Trigger Point Release Body Position Supine PT-OP-T Assessment and Plan Start: 05/27/24 16:54 Freq: Status: Active Protocol: Document 05/29/24 09:45 DCW (Rec: 05/29/24 10:29 DCW [id number]) Physical Therapy Assessment Impairments Impairments Activity Tolerance,Functional Activities,Functional Mobility ,Pain,ROM,Strength Goals Three Impairment Pt displays weakness in R shoulder, with MMT 3-/5 in flexion and abduction Nut Orchardist Goal (LTG) Pt to demonstrate right shoulder MMT of at least 4/5 with flexion, abduction, and external rotation in order to improve right GH joint stability LTG Duration 07/27/24 Two Impairment Right shoulder AROM limited to 110? flexion and 103? abduction [place]ist Goal (LTG) Pt to improve pain-free right shoulder ROM to >120? in both flexion and extension in order to improve overhead functional mobility with risk assessment analyst. LTG Duration 07/27/24 One Impairment Pt does not have an appropriate home exercise program Short Term Goal (STG) Pt to be independent and compliant with an appropriate HEP STG Duration 06/27/24 Assessment Summary Assessment Pt tolerated new activities well, biggest struggle with external rotation against resistance, switch to isometric hold, able to perform better. Tolerated STM well. Physical Therapy Plan Frequency and Duration Frequency of Treatment 2x/Week Plan of Care Start Date 05/27/24 Plan of Care End Date 07/27/24 Therapeutic Interventions Therapeutic Interventions Home Exercise Program,Joint Mobilizations,Manual Therapy, Neuromuscular Re-education, Patient/Caregiver Education, Self-Care/Home Management,Soft Tissue Mobilization, Therapeutic Activities, Therapeutic Exercises Modalities Cold Pack/Ice Massage,Electric Stimulation,Hot Packs, Ultrasound Next Visit Focus/Plan Next Note Type Treatment Note Next Visit Plan PROM, AROM, shoulder strengthening, joint stabilization
--- NOTE | 2024-06-02 10:35 | PT.OTN ---
Current Diagnoses Pain in right shoulder (06/02/24) Stiffness of right shoulder, not elsewhere classified (06/02/24) Other shoulder lesions, right shoulder (06/02/24) Physical Therapy Treatment Note PT-OP-A Visit Information Start: 05/27/24 16:54 Freq: Status: Active Protocol: Document 06/02/24 09:50 SP (Rec: 06/02/24 10:38 SP [id number]) Out-Patient Physical Therapy Visit Information Visit Information Visit Type Treatment Note Visit Start Time 09:50 Visit Stop Time 10:35 Visit Number 3 Number of AGRICULTURAL EXTENSION EDUCATOR Visits 1 Evaluation Information Evaluation Date 05/27/24 PT-OP-B Current Condition Start: 05/27/24 16:54 Freq: Status: Active Protocol: Document 05/27/24 13:45 DCW (Rec: 05/27/24 17:25 DCW [id number]) Current Condition History of Current Condition Onset Date Six month history Current Complaints Right shoulder pain History of Current Condition Pt is a 74 year old male presenting with a six month history of right shoulder pain . Pt reports he doesn't remember a specific injury, but does note around the time his pain began, he had been working on tearing down and putting back up a car port. Shoulder has improved a bit since the pain began in October, but is still quite limited with overhead motion, and notes his shoulder limits his golf swing. Admits that even lifting a coffee cup with his right arm is a bit of a struggle. Pain and stiffness is worse in the morning, admits that he has to use his left hand to lift his right arm up, but it eases up throughout the day, and he gets more use out of it. Prior Treatments and Tests Shoulder x-ray: IMPRESSION: AC joint hypertrophy with moderate downward going component. No acute bony abnormality. per Vincenzo Prince M.D. on 02/14/2024 Treatment Goals Patient/Caregiver Goals Improve R shoulder function PT-OP-C Subjective Start: 05/27/24 16:54 Freq: Status: Active Protocol: Document 06/02/24 09:50 SP (Rec: 06/02/24 10:38 SP [id number]) OP-PT Subjective Patient Comments Patient Comments Pt reports his L shld was little sore after last tx but went away by the next day. PT-OP-E Functional Tests Start: 05/27/24 16:54 Freq: Status: Active Protocol: Document 05/27/24 13:45 DCW (Rec: 05/27/24 17:25 DCW [id number]) Functional Tests Apley's Scratch Test Action 1- Left Posterior opposite shoulder Action 1- Right Lateral opposite shoulder Action 2- Left T4 Action 2- Right T4 Action 3- Left T6 Action 3- Right T9 PT-OP-K Range of Motion Start: 05/27/24 16:54 Freq: Status: Active Protocol: Document 05/27/24 13:45 DCW (Rec: 05/27/24 17:25 DCW [id number]) Shoulder Goniometric Range of Motion Shoulder Right Passive Testing Position Supine Flexion 160 Abduction 160 External Rotation at 45 degrees 45 Abduction Internal Rotation 55 Right Active Testing Position Sitting Flexion 110 Abduction 103 External Rotation at 0 degrees Abduction 66 Internal Rotation Behind Back (text) T9 Left Active Testing Position Sitting Flexion 147 Abduction 139 External Rotation at 0 degrees Abduction 62 Internal Rotation Behind Back (text) T6 PT-OP-L Special Tests Start: 05/27/24 16:54 Freq: Status: Active Protocol: Document 05/27/24 13:45 DCW (Rec: 05/27/24 17:25 DCW [id number]) Special Tests Shoulder Special Tests Sulcus Test Results Negative Passive ER Rotator Cuff Test Results Negative Painful Arc Test Results Positive R Lift-Off Rotator Cuff Test Results Positive R Grind Labrum Test Results Negative [place] Impingement Test Results Negative Empty Can Test Results Negative Drop Arm Rotator Cuff Test Results Positive R Clunk Test Test Results Negative Belly Press Test Results Negative Apprehension Test Test Results Positive R PT-OP-M Strength Start: 05/27/24 16:54 Freq: Status: Active Protocol: Document 05/27/24 13:45 DCW (Rec: 05/27/24 17:25 DCW [id number]) Shoulder Strength Shoulder Manual Muscle Testing Right Flexion 3- Fair- Abduction (C5) 3- Fair- External Rotation 3 Fair Internal Rotation 5 Normal Left Flexion 4 Good Abduction (C5) 4 Good External Rotation 5 Normal Internal Rotation 5 Normal PT-OP-Q Treatments Start: 05/27/24 16:54 Freq: Status: Active Protocol: Document 06/02/24 09:50 SP (Rec: 06/02/24 10:38 SP [id number]) Cardio Equipment Upper Body Ergometer (UBE) Other unavailable 9/3 Recumbent Stepper (Sci-Fit) Duration (Minutes) 5 Resistance 3 Seat Position 12 Other cued try use more arms Therapeutic Exercises Supine Exercises Chest press Resistance PVC + 4# wt Reps/Minutes x10 Serratus Punch Supine Exercise Name Serratus Punch Side bilateral Resistance AROM Equipment Used PVC Reps/Minutes x10 Flexion Supine Exercise Name Supine concentric & Eccentric flexion 90deg /c PVC Side bilateral Resistance AAROM Reps/Minutes x10 Comments reports little discomfort initially Sidelying Exercises FF Sidelying Exercise Name trialed before manual pnfree almost full range, challenge > 80 degpostmanual Reps/Minutes 5 reps pre manual , 2 trial after manual Comments tactile cues for scapular ROM ER Sidelying Exercise Name trialed in PT Side right Resistance AROM Equipment Used towel roll under arm Reps/Minutes 5 reps x2 sets Comments improved range with reps, monitor painfree range- quivering mus posterior sh Sitting Exercises Chest Press Sitting Exercise Name Chest press /c PVC Side bilateral Resistance 4# Reps/Minutes 2 attempted reps before R anterior shld pain Comments HOLD 9/3 PROM Sitting Exercise Name PULLEYS: Flexion, Abduction Side right Resistance LUE assist RUE Reps/Minutes x10 each Comments cued elbow straight, good neck alignment Standing Exercises ER Standing Exercise Name ER - Isometric resistance Side right Resistance Lv 3 walk out> AROM at wall Reps/Minutes 3 SH x2 each Comments to painful 9/3- HOld Abduction Standing Exercise Name Shoulder Abduction isometric small range Side right Resistance Lv 3 under foot Reps/Minutes 2 SH x5 reps Comments Pain-free ROM Other Exercises self STM Other Exercise Name discussion not performed: UT Equipment Used ball in sock Comments UT/parascapular mus, states has been helpful in past Manual Therapy Treatment Soft Tissue Mobilization R Shoulder Body Location Parascapulars, Upper Trap, Pec Mobilization Type Strumming,Sustained Pressure, Other Body Position L SL Comments Improved lessening tension UT, pec, discussed use ball in sock at wall (he reported has done in his past, next tx review this). Joint Mobilizations R scapulothoracic Direction retraction/depression Grade II PT-OP-T Assessment and Plan Start: 05/27/24 16:54 Freq: Status: Active Protocol: Document 06/02/24 09:50 SP (Rec: 06/02/24 10:38 SP [id number]) Physical Therapy Assessment Goals Three Impairment Pt displays weakness in R shoulder, with MMT 3-/5 in flexion and abduction Long-Term Goal (LTG) Pt to demonstrate right shoulder MMT of at least 4/5 with flexion, abduction, and external rotation in order to improve right GH joint stability LTG Duration 07/27/24 Two Impairment Right shoulder AROM limited to 110? flexion and 103? abduction Long-Term Goal (LTG) Pt to improve pain-free right shoulder ROM to >120? in both flexion and extension in order to improve overhead functional mobility with slitter scorer. LTG Duration 07/27/24 One Impairment Pt does not have an appropriate home exercise program Short Term Goal (STG) Pt to be independent and compliant with an appropriate HEP 06/02/24: supine serratus press AROM vs wt, FF use dowel, sit> supine chest press, pulleys, stand ER TB> , resisted UE walk. STG Duration 06/27/24 progressing 06/02/24 Assessment Summary Assessment Pt reports pain anterior R shld during seated chest press (discussed hold off performing) improved modification to supine and standing pain during resisted ER isometric and at wall, improved modification to L side lying AROM, cues for painfree range. Physical Therapy Plan Frequency and Duration Frequency of Treatment 2x/Week Plan of Care Start Date 05/27/24 Plan of Care End Date 07/27/24 Therapeutic Interventions Therapeutic Interventions Home Exercise Program,Joint Mobilizations,Manual Therapy, Neuromuscular Re-education, Patient/Caregiver Education, Self-Care/Home Management,Soft Tissue Mobilization, Therapeutic Activities, Therapeutic Exercises Modalities Cold Pack/Ice Massage,Electric Stimulation,Hot Packs, Ultrasound Next Visit Focus/Plan Next Note Type Treatment Note Next Visit Plan HEP: supine serratus press, FF use dowel, sit chest press, pulleys, stand ER TB, resisted UE walk. Assess response to shld side and supine ex. POC: PROM, AROM, shoulder strengthening, joint stabilization
--- NOTE | 2024-06-05 10:27 | PT.OTN ---
Current Diagnoses Pain in right shoulder (06/05/24) Stiffness of right shoulder, not elsewhere classified (06/05/24) Other shoulder lesions, right shoulder (06/05/24) Physical Therapy Treatment Note PT-OP-A Visit Information Start: 05/27/24 16:54 Freq: Status: Active Protocol: Document 06/05/24 09:45 DCW (Rec: 06/05/24 10:27 DCW [id number]) Out-Patient Physical Therapy Visit Information Visit Information Visit Type Treatment Note Visit Start Time 09:45 Visit Stop Time 10:30 Visit Number 4 Number of TIRE BEADER MAKER Visits 0 Evaluation Information Evaluation Date 05/27/24 PT-OP-B Current Condition Start: 05/27/24 16:54 Freq: Status: Active Protocol: Document 05/27/24 13:45 DCW (Rec: 05/27/24 17:25 DCW [id number]) Current Condition History of Current Condition Onset Date Six month history Current Complaints Right shoulder pain History of Current Condition Pt is a 74 year old male presenting with a six month history of right shoulder pain . Pt reports he doesn't remember a specific injury, but does note around the time his pain began, he had been working on tearing down and putting back up a car port. Shoulder has improved a bit since the pain began in October, but is still quite limited with overhead motion, and notes his shoulder limits his golf swing. Admits that even lifting a coffee cup with his right arm is a bit of a struggle. Pain and stiffness is worse in the morning, admits that he has to use his left hand to lift his right arm up, but it eases up throughout the day, and he gets more use out of it. Prior Treatments and Tests Shoulder x-ray: IMPRESSION: AC joint hypertrophy with moderate downward going component. No acute bony abnormality. per Vincenzo Prince M.D. on 02/14/2024 Treatment Goals Patient/Caregiver Goals Improve R shoulder function PT-OP-C Subjective Start: 05/27/24 16:54 Freq: Status: Active Protocol: Document 06/05/24 09:45 DCW (Rec: 06/05/24 10:27 DCW [id number]) OP-PT Subjective Patient Comments Patient Comments It's feeling a little better during the day, still not much better during the night. PT-OP-E Functional Tests Start: 05/27/24 16:54 Freq: Status: Active Protocol: Document 05/27/24 13:45 DCW (Rec: 05/27/24 17:25 DCW [id number]) Functional Tests Apley's Scratch Test Action 1- Left Posterior opposite shoulder Action 1- Right Lateral opposite shoulder Action 2- Left T4 Action 2- Right T4 Action 3- Left T6 Action 3- Right T9 PT-OP-K Range of Motion Start: 05/27/24 16:54 Freq: Status: Active Protocol: Document 05/27/24 13:45 DCW (Rec: 05/27/24 17:25 DCW [id number]) Shoulder Goniometric Range of Motion Shoulder Right Passive Testing Position Supine Flexion 160 Abduction 160 External Rotation at 45 degrees 45 Abduction Internal Rotation 55 Right Active Testing Position Sitting Flexion 110 Abduction 103 External Rotation at 0 degrees Abduction 66 Internal Rotation Behind Back (text) T9 Left Active Testing Position Sitting Flexion 147 Abduction 139 External Rotation at 0 degrees Abduction 62 Internal Rotation Behind Back (text) T6 PT-OP-L Special Tests Start: 05/27/24 16:54 Freq: Status: Active Protocol: Document 05/27/24 13:45 DCW (Rec: 05/27/24 17:25 DCW [id number]) Special Tests Shoulder Special Tests Sulcus Test Results Negative Passive ER Rotator Cuff Test Results Negative Painful Arc Test Results Positive R Lift-Off Rotator Cuff Test Results Positive R Grind Labrum Test Results Negative [place] Impingement Test Results Negative Empty Can Test Results Negative Drop Arm Rotator Cuff Test Results Positive R Clunk Test Test Results Negative Belly Press Test Results Negative Apprehension Test Test Results Positive R PT-OP-M Strength Start: 05/27/24 16:54 Freq: Status: Active Protocol: Document 05/27/24 13:45 DCW (Rec: 05/27/24 17:25 DCW [id number]) Shoulder Strength Shoulder Manual Muscle Testing Right Flexion 3- Fair- Abduction (C5) 3- Fair- External Rotation 3 Fair Internal Rotation 5 Normal Left Flexion 4 Good Abduction (C5) 4 Good External Rotation 5 Normal Internal Rotation 5 Normal PT-OP-Q Treatments Start: 05/27/24 16:54 Freq: Status: Active Protocol: Document 06/05/24 09:45 DCW (Rec: 06/05/24 10:27 DCW [id number]) Cardio Equipment Upper Body Ergometer (UBE) Duration (Minutes) 7 RPM 60 Seat Position 11 Height 3.5 Therapeutic Exercises Sitting Exercises PROM Sitting Exercise Name Pulleys - Flexion, Abduction Side bilateral Standing Exercises UE PNF Standing Exercise Name D1/D2 flexion UE PNF Side right Other Exercises Ball Wall Other Exercise Name Ball circles on wall Side right Comments 90? flexion Manual Therapy Treatment Soft Tissue Mobilization R Shoulder Body Location Parascapulars, Upper Trap, Pec Mobilization Type Strumming,Sustained Pressure, Other Body Position Supine Joint Mobilizations R scapulothoracic Direction retraction/depression Grade II PT-OP-T Assessment and Plan Start: 05/27/24 16:54 Freq: Status: Active Protocol: Document 06/05/24 09:45 DCW (Rec: 06/05/24 10:27 AZW [id number]) Physical Therapy Assessment Impairments Impairments Activity Tolerance,Functional Activities,Functional Mobility ,Pain,ROM,Strength Goals Three Impairment Pt displays weakness in R shoulder, with MMT 3-/5 in flexion and abduction Senior Care Goal (LTG) Pt to demonstrate right shoulder MMT of at least 4/5 with flexion, abduction, and external rotation in order to improve right GH joint stability LTG Duration 07/27/24 Two Impairment Right shoulder AROM limited to 110? flexion and 103? abduction Senior Care Goal (LTG) Pt to improve pain-free right shoulder ROM to >120? in both flexion and extension in order to improve overhead functional mobility with strip picker. LTG Duration 07/27/24 One Impairment Pt does not have an appropriate home exercise program Short Term Goal (STG) Pt to be independent and compliant with an appropriate HEP 06/02/24: supine serratus press AROM vs wt, FF use dowel, sit> supine chest press, pulleys, stand ER TB> , resisted UE walk. STG Duration 06/27/24 progressing 06/02/24 Assessment Summary Assessment Continues to exhibit difficulty throughout painful arc during ROM, but pt overall tone improving, fairly compliant with HEP. Did admit to forgetting about self-STM using tennis ball. Physical Therapy Plan Frequency and Duration Frequency of Treatment 2x/Week Plan of Care Start Date 05/27/24 Plan of Care End Date 07/27/24 Therapeutic Interventions Therapeutic Interventions Home Exercise Program,Joint Mobilizations,Manual Therapy, Neuromuscular Re-education, Patient/Caregiver Education, Self-Care/Home Management,Soft Tissue Mobilization, Therapeutic Activities, Therapeutic Exercises Modalities Cold Pack/Ice Massage,Electric Stimulation,Hot Packs, Ultrasound Next Visit Focus/Plan Next Note Type Treatment Note Next Visit Plan HEP: supine serratus press, FF use dowel, sit chest press, pulleys, stand ER TB, resisted UE walk. Assess response to shld side and supine ex. POC: PROM, AROM, shoulder strengthening, joint stabilization
--- NOTE | 2024-06-09 10:32 | PT.OTN ---
Current Diagnoses Pain in right shoulder (06/09/24) Stiffness of right shoulder, not elsewhere classified (06/09/24) Other shoulder lesions, right shoulder (06/09/24) Physical Therapy Treatment Note PT-OP-A Visit Information Start: 05/27/24 16:54 Freq: Status: Active Protocol: Document 06/09/24 09:52 SP (Rec: 06/09/24 10:34 SP [id number]) Out-Patient Physical Therapy Visit Information Visit Information Visit Type Treatment Note Visit Start Time 09:52 Visit Stop Time 10:32 Visit Number 5 Number of CREDIT CARD ANALYST Visits 1 Evaluation Information Evaluation Date 05/27/24 PT-OP-B Current Condition Start: 05/27/24 16:54 Freq: Status: Active Protocol: Document 05/27/24 13:45 DCW (Rec: 05/27/24 17:25 DCW [id number]) Current Condition History of Current Condition Onset Date Six month history Current Complaints Right shoulder pain History of Current Condition Pt is a 74 year old male presenting with a six month history of right shoulder pain . Pt reports he doesn't remember a specific injury, but does note around the time his pain began, he had been working on tearing down and putting back up a car port. Shoulder has improved a bit since the pain began in October, but is still quite limited with overhead motion, and notes his shoulder limits his golf swing. Admits that even lifting a coffee cup with his right arm is a bit of a struggle. Pain and stiffness is worse in the morning, admits that he has to use his left hand to lift his right arm up, but it eases up throughout the day, and he gets more use out of it. Prior Treatments and Tests Shoulder x-ray: IMPRESSION: AC joint hypertrophy with moderate downward going component. No acute bony abnormality. per Vincenzo Prince M.D. on 02/14/2024 Treatment Goals Patient/Caregiver Goals Improve R shoulder function PT-OP-C Subjective Start: 05/27/24 16:54 Freq: Status: Active Protocol: Document 06/09/24 09:52 SP (Rec: 06/09/24 10:34 SP [id number]) OP-PT Subjective Patient Comments Patient Comments Pt reports sleeping til about 4 am before needs get up. Would like to be able to sleep all night. He still can't lift cup coffee out at side but if give little support pulling on shirt goes up. PT-OP-E Functional Tests Start: 05/27/24 16:54 Freq: Status: Active Protocol: Document 05/27/24 13:45 DCW (Rec: 05/27/24 17:25 DCW [id number]) Functional Tests Apley's Scratch Test Action 1- Left Posterior opposite shoulder Action 1- Right Lateral opposite shoulder Action 2- Left T4 Action 2- Right T4 Action 3- Left T6 Action 3- Right T9 PT-OP-K Range of Motion Start: 05/27/24 16:54 Freq: Status: Active Protocol: Document 05/27/24 13:45 DCW (Rec: 05/27/24 17:25 DCW [id number]) Shoulder Goniometric Range of Motion Shoulder Right Passive Testing Position Supine Flexion 160 Abduction 160 External Rotation at 45 degrees 45 Abduction Internal Rotation 55 Right Active Testing Position Sitting Flexion 110 Abduction 103 External Rotation at 0 degrees Abduction 66 Internal Rotation Behind Back (text) T9 Left Active Testing Position Sitting Flexion 147 Abduction 139 External Rotation at 0 degrees Abduction 62 Internal Rotation Behind Back (text) T6 PT-OP-L Special Tests Start: 05/27/24 16:54 Freq: Status: Active Protocol: Document 05/27/24 13:45 DCW (Rec: 05/27/24 17:25 DCW [id number]) Special Tests Shoulder Special Tests Sulcus Test Results Negative Passive ER Rotator Cuff Test Results Negative Painful Arc Test Results Positive R Lift-Off Rotator Cuff Test Results Positive R Grind Labrum Test Results Negative [place] Impingement Test Results Negative Empty Can Test Results Negative Drop Arm Rotator Cuff Test Results Positive R Clunk Test Test Results Negative Belly Press Test Results Negative Apprehension Test Test Results Positive R PT-OP-M Strength Start: 05/27/24 16:54 Freq: Status: Active Protocol: Document 05/27/24 13:45 DCW (Rec: 05/27/24 17:25 DCW [id number]) Shoulder Strength Shoulder Manual Muscle Testing Right Flexion 3- Fair- Abduction (C5) 3- Fair- External Rotation 3 Fair Internal Rotation 5 Normal Left Flexion 4 Good Abduction (C5) 4 Good External Rotation 5 Normal Internal Rotation 5 Normal PT-OP-Q Treatments Start: 05/27/24 16:54 Freq: Status: Active Protocol: Document 06/09/24 09:52 SP (Rec: 06/09/24 10:34 SP [id number]) Therapeutic Exercises Supine Exercises Serratus Punch Supine Exercise Name Serratus Punch Side bilateral Resistance AROM Equipment Used PVC Reps/Minutes x10 Flexion Supine Exercise Name Supine concentric & Eccentric flexion 90deg /c PVC Side bilateral Resistance AROM Reps/Minutes x10 Comments reports little discomfort initially Sidelying Exercises ABD Sidelying Exercise Name reviewed HEP Side right Resistance AROM> 1# DB> 2# DB Reps/Minutes 10 reps total Comments cued stacked on side, slight press away & ER if needed for pnfree range open book Sidelying Exercise Name Reviewed- added to [facility] 06/09 Side right Resistance AROM Equipment Used 1. hand on head pnfree 2. long arm challenge slight discomfort superior GH Reps/Minutes 5 reps each Comments 1. pnfree (added to HEP) 2. slight discomofort FF Sidelying Exercise Name trialed in PT Resistance AROM Reps/Minutes BUE //, x8 reps Comments tactile cues for scapular ROM ER Sidelying Exercise Name added to HEP Side right Resistance AROM Equipment Used towel roll under arm Reps/Minutes 5 reps x2 sets Comments improved range with reps, monitor painfree range- quivering mus posterior sh Sitting Exercises eccentric FF & ABD Sitting Exercise Name trialed in PT: FF and ABD- to easy Resistance Tb #3>5 purple Equipment Used seated in mesh chair rear facing FF, angled for ABD Reps/Minutes x10 each Comments pt reports low eccentric and quick no pain ER /c dowel Sitting Exercise Name trialed Resistance AAROM end range Reps/Minutes x10 Comments improved ER pnfree PROM Sitting Exercise Name Pulleys - Flexion, Abduction Side bilateral Resistance L assist R Reps/Minutes x15 each Comments cued elbow straight, good neck alignment Standing Exercises Wall slides Standing Exercise Name Wall clock 12, 2, 3 Side right Resistance TB #1 Reps/Minutes x8 Comments cues for elongated posture, scapinferior glide- 1-2/10 Other Exercises Resisted Side-stepping Other Exercise Name Upper Extremity side-stepping on wall Resistance light blue band held FF/shld height Equipment Used hands on wall Reps/Minutes 20 ft x1 laps Comments cues for patterning BUE, BLEs and slow pacing, good tiring effort/no pain PT-OP-T Assessment and Plan Start: 05/27/24 16:54 Freq: Status: Active Protocol: Document 06/09/24 09:52 SP (Rec: 06/09/24 10:34 SP [id number]) Physical Therapy Assessment Goals Three Impairment Pt displays weakness in R shoulder, with MMT 3-/5 in flexion and abduction [facility] Goal (LTG) Pt to demonstrate right shoulder MMT of at least 4/5 with flexion, abduction, and external rotation in order to improve right GH joint stability LTG Duration 07/27/24 Two Impairment Right shoulder AROM limited to 110? flexion and 103? abduction Mcfp Goal (LTG) Pt to improve pain-free right shoulder ROM to >120? in both flexion and extension in order to improve overhead functional mobility with biomedical equipment tech. LTG Duration 07/27/24 One Impairment Pt does not have an appropriate home exercise program Short Term Goal (STG) Pt to be independent and compliant with an appropriate HEP 06/02/24: supine serratus press AROM vs wt, FF use dowel, sit> supine chest press, pulleys, stand ER TB> , resisted UE walk. STG Duration 06/27/24 progressing 06/02/24 Assessment Summary Assessment Pt Tolerated session well. 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 Physical Therapy Plan Frequency and Duration Frequency of Treatment 2x/Week Plan of Care Start Date 05/27/24 Plan of Care End Date 07/27/24 Therapeutic Interventions Therapeutic Interventions Home Exercise Program,Joint Mobilizations,Manual Therapy, Neuromuscular Re-education, Patient/Caregiver Education, Self-Care/Home Management,Soft Tissue Mobilization, Therapeutic Activities, Therapeutic Exercises Modalities Cold Pack/Ice Massage,Electric Stimulation,Hot Packs, Ultrasound Next Visit Focus/Plan Next Note Type Treatment Note Next Visit Plan HEP: supine serratus press, FF use dowel, sit chest press, pulleys, stand ER TB, resisted UE walk and clock. POC: PROM, AROM, shoulder strengthening, joint stabilization
--- NOTE | 2024-06-12 10:30 | PT.OTN ---
Current Diagnoses Pain in right shoulder (06/12/24) Stiffness of right shoulder, not elsewhere classified (06/12/24) Other shoulder lesions, right shoulder (06/12/24) Physical Therapy Treatment Note PT-OP-A Visit Information Start: 05/27/24 16:54 Freq: Status: Active Protocol: Document 06/12/24 09:45 DCW (Rec: 06/12/24 10:30 DCW [id number]) Out-Patient Physical Therapy Visit Information Visit Information Visit Type Treatment Note Visit Start Time 09:45 Visit Stop Time 10:30 Visit Number 6 Number of CHANNELER OUTSOLE Visits 0 Evaluation Information Evaluation Date 05/27/24 PT-OP-B Current Condition Start: 05/27/24 16:54 Freq: Status: Active Protocol: Document 05/27/24 13:45 DCW (Rec: 05/27/24 17:25 DCW [id number]) Current Condition History of Current Condition Onset Date Six month history Current Complaints Right shoulder pain History of Current Condition Pt is a 74 year old male presenting with a six month history of right shoulder pain . Pt reports he doesn't remember a specific injury, but does note around the time his pain began, he had been working on tearing down and putting back up a car port. Shoulder has improved a bit since the pain began in October, but is still quite limited with overhead motion, and notes his shoulder limits his golf swing. Admits that even lifting a coffee cup with his right arm is a bit of a struggle. Pain and stiffness is worse in the morning, admits that he has to use his left hand to lift his right arm up, but it eases up throughout the day, and he gets more use out of it. Prior Treatments and Tests Shoulder x-ray: IMPRESSION: AC joint hypertrophy with moderate downward going component. No acute bony abnormality. per Vincenzo Prince M.D. on 02/14/2024 Treatment Goals Patient/Caregiver Goals Improve R shoulder function PT-OP-C Subjective Start: 05/27/24 16:54 Freq: Status: Active Protocol: Document 06/12/24 09:45 DCW (Rec: 06/12/24 10:30 DCW [id number]) OP-PT Subjective Patient Comments Patient Comments Last week I thought I could get a little more movement, but I was putting up a canopy the past few days, and after drilling in about 300 screws, I started feeling pretty stiff again. PT-OP-E Functional Tests Start: 05/27/24 16:54 Freq: Status: Active Protocol: Document 05/27/24 13:45 DCW (Rec: 05/27/24 17:25 DCW [id number]) Functional Tests Apley's Scratch Test Action 1- Left Posterior opposite shoulder Action 1- Right Lateral opposite shoulder Action 2- Left T4 Action 2- Right T4 Action 3- Left T6 Action 3- Right T9 PT-OP-K Range of Motion Start: 05/27/24 16:54 Freq: Status: Active Protocol: Document 05/27/24 13:45 DCW (Rec: 05/27/24 17:25 DCW [id number]) Shoulder Goniometric Range of Motion Shoulder Right Passive Testing Position Supine Flexion 160 Abduction 160 External Rotation at 45 degrees 45 Abduction Internal Rotation 55 Right Active Testing Position Sitting Flexion 110 Abduction 103 External Rotation at 0 degrees Abduction 66 Internal Rotation Behind Back (text) T9 Left Active Testing Position Sitting Flexion 147 Abduction 139 External Rotation at 0 degrees Abduction 62 Internal Rotation Behind Back (text) T6 PT-OP-L Special Tests Start: 05/27/24 16:54 Freq: Status: Active Protocol: Document 05/27/24 13:45 DCW (Rec: 05/27/24 17:25 DCW [id number]) Special Tests Shoulder Special Tests Sulcus Test Results Negative Passive ER Rotator Cuff Test Results Negative Painful Arc Test Results Positive R Lift-Off Rotator Cuff Test Results Positive R Grind Labrum Test Results Negative [place] Impingement Test Results Negative Empty Can Test Results Negative Drop Arm Rotator Cuff Test Results Positive R Clunk Test Test Results Negative Belly Press Test Results Negative Apprehension Test Test Results Positive R PT-OP-M Strength Start: 05/27/24 16:54 Freq: Status: Active Protocol: Document 05/27/24 13:45 DCW (Rec: 05/27/24 17:25 DCW [id number]) Shoulder Strength Shoulder Manual Muscle Testing Right Flexion 3- Fair- Abduction (C5) 3- Fair- External Rotation 3 Fair Internal Rotation 5 Normal Left Flexion 4 Good Abduction (C5) 4 Good External Rotation 5 Normal Internal Rotation 5 Normal PT-OP-Q Treatments Start: 05/27/24 16:54 Freq: Status: Active Protocol: Document 06/12/24 09:45 DCW (Rec: 06/12/24 10:30 DCW [id number]) Cardio Equipment Upper Body Ergometer (UBE) Duration (Minutes) 6 RPM 60 Seat Position 12 Height 4 Therapeutic Exercises Sitting Exercises ER/IR Sitting Exercise Name ER/IR in 90/90 Side right Resistance Red ball - 3.3# PROM Sitting Exercise Name Pulleys - Flexion, Abduction Side bilateral Standing Exercises Body Blade Standing Exercise Name Body Blade - flexion Side right Resistance Yellow IR Standing Exercise Name Standing IR /c pulleys Side right Wall slides Standing Exercise Name Forearm wall slides - Flexion Side bilateral Resistance Lv 2 loop Comments Keep forearms // vs T-band tension PT-OP-T Assessment and Plan Start: 05/27/24 16:54 Freq: Status: Active Protocol: Document 06/12/24 09:45 DCW (Rec: 06/12/24 10:30 DCW [id number]) Physical Therapy Assessment Impairments Impairments Activity Tolerance,Functional Activities,Functional Mobility ,Pain,ROM,Strength Goals Three Impairment Pt displays weakness in R shoulder, with MMT 3-/5 in flexion and abduction Transporter Radiology Goal (LTG) Pt to demonstrate right shoulder MMT of at least 4/5 with flexion, abduction, and external rotation in order to improve right GH joint stability LTG Duration 07/27/24 Two Impairment Right shoulder AROM limited to 110? flexion and 103? abduction [facility] Goal (LTG) Pt to improve pain-free right shoulder ROM to >120? in both flexion and extension in order to improve overhead functional mobility with pet care worker. LTG Duration 07/27/24 One Impairment Pt does not have an appropriate home exercise program Short Term Goal (STG) Pt to be independent and compliant with an appropriate HEP 06/02/24: supine serratus press AROM vs wt, FF use dowel, sit> supine chest press, pulleys, stand ER TB> , resisted UE walk. STG Duration 06/27/24 progressing 06/02/24 Assessment Summary Assessment Pt still experiencing sleep disturbances and pain with active mootion, does appear to be lessening in severity. Upper trap tone also improving . Continue to work on strengthening and AROM/PROM Physical Therapy Plan Frequency and Duration Frequency of Treatment 2x/Week Plan of Care Start Date 05/27/24 Plan of Care End Date 07/27/24 Therapeutic Interventions Therapeutic Interventions Home Exercise Program,Joint Mobilizations,Manual Therapy, Neuromuscular Re-education, Patient/Caregiver Education, Self-Care/Home Management,Soft Tissue Mobilization, Therapeutic Activities, Therapeutic Exercises Modalities Cold Pack/Ice Massage,Electric Stimulation,Hot Packs, Ultrasound Next Visit Focus/Plan Next Note Type Treatment Note Next Visit Plan HEP: supine serratus press, FF use dowel, sit chest press, pulleys, stand ER TB, resisted UE walk and clock. POC: PROM, AROM, shoulder strengthening, joint stabilization
--- NOTE | 2024-06-24 11:15 | PT.OTN ---
Current Diagnoses Pain in right shoulder (06/24/24) Stiffness of right shoulder, not elsewhere classified (06/24/24) Other shoulder lesions, right shoulder (06/24/24) Physical Therapy Treatment Note PT-OP-A Visit Information Start: 05/27/24 16:54 Freq: Status: Active Protocol: Document 06/24/24 10:37 SP (Rec: 06/24/24 11:17 SP [id number]) Out-Patient Physical Therapy Visit Information Visit Information Visit Type Treatment Note Visit Start Time 10:37 Visit Stop Time 11:15 Visit Number 7 Number of CHEMISTRY LAB INSTRUCTOR Visits 1 Evaluation Information Evaluation Date 05/27/24 PT-OP-B Current Condition Start: 05/27/24 16:54 Freq: Status: Active Protocol: Document 05/27/24 13:45 DCW (Rec: 05/27/24 17:25 DCW [id number]) Current Condition History of Current Condition Onset Date Six month history Current Complaints Right shoulder pain History of Current Condition Pt is a 74 year old male presenting with a six month history of right shoulder pain . Pt reports he doesn't remember a specific injury, but does note around the time his pain began, he had been working on tearing down and putting back up a car port. Shoulder has improved a bit since the pain began in October, but is still quite limited with overhead motion, and notes his shoulder limits his golf swing. Admits that even lifting a coffee cup with his right arm is a bit of a struggle. Pain and stiffness is worse in the morning, admits that he has to use his left hand to lift his right arm up, but it eases up throughout the day, and he gets more use out of it. Prior Treatments and Tests Shoulder x-ray: IMPRESSION: AC joint hypertrophy with moderate downward going component. No acute bony abnormality. per Vincenzo Prince M.D. on 02/14/2024 Treatment Goals Patient/Caregiver Goals Improve R shoulder function PT-OP-C Subjective Start: 05/27/24 16:54 Freq: Status: Active Protocol: Document 06/24/24 10:37 SP (Rec: 06/24/24 11:17 SP [id number]) OP-PT Subjective Patient Comments Patient Comments Pt reports is able to reach out to R side little further/ higher. He is a L sidesleeper. SLeeping 11- 4 before pain in R shld wakes him up. Gets up and lays down in recliner where can get back to sleep. States is compliant with HEP. PT-OP-E Functional Tests Start: 05/27/24 16:54 Freq: Status: Active Protocol: Document 05/27/24 13:45 DCW (Rec: 05/27/24 17:25 DCW [id number]) Functional Tests Apley's Scratch Test Action 1- Left Posterior opposite shoulder Action 1- Right Lateral opposite shoulder Action 2- Left T4 Action 2- Right T4 Action 3- Left T6 Action 3- Right T9 PT-OP-K Range of Motion Start: 05/27/24 16:54 Freq: Status: Active Protocol: Document 05/27/24 13:45 DCW (Rec: 05/27/24 17:25 DCW [id number]) Shoulder Goniometric Range of Motion Shoulder Right Passive Testing Position Supine Flexion 160 Abduction 160 External Rotation at 45 degrees 45 Abduction Internal Rotation 55 Right Active Testing Position Sitting Flexion 110 Abduction 103 External Rotation at 0 degrees Abduction 66 Internal Rotation Behind Back (text) T9 Left Active Testing Position Sitting Flexion 147 Abduction 139 External Rotation at 0 degrees Abduction 62 Internal Rotation Behind Back (text) T6 PT-OP-L Special Tests Start: 05/27/24 16:54 Freq: Status: Active Protocol: Document 05/27/24 13:45 DCW (Rec: 05/27/24 17:25 DCW [id number]) Special Tests Shoulder Special Tests Sulcus Test Results Negative Passive ER Rotator Cuff Test Results Negative Painful Arc Test Results Positive R Lift-Off Rotator Cuff Test Results Positive R Grind Labrum Test Results Negative [place] Impingement Test Results Negative Empty Can Test Results Negative Drop Arm Rotator Cuff Test Results Positive R Clunk Test Test Results Negative Belly Press Test Results Negative Apprehension Test Test Results Positive R PT-OP-M Strength Start: 05/27/24 16:54 Freq: Status: Active Protocol: Document 05/27/24 13:45 DCW (Rec: 05/27/24 17:25 DCW [id number]) Shoulder Strength Shoulder Manual Muscle Testing Right Flexion 3- Fair- Abduction (C5) 3- Fair- External Rotation 3 Fair Internal Rotation 5 Normal Left Flexion 4 Good Abduction (C5) 4 Good External Rotation 5 Normal Internal Rotation 5 Normal PT-OP-Q Treatments Start: 05/27/24 16:54 Freq: Status: Active Protocol: Document 06/24/24 10:37 SP (Rec: 06/24/24 11:17 SP [id number]) Cardio Equipment Upper Body Ergometer (UBE) Duration (Minutes) 6 RPM 60 Seat Position 13 Height 4 Other 3 min fwd/bwd Therapeutic Exercises Sitting Exercises ER/IR Sitting Exercise Name ER/IR in 90/90 Side right Resistance Red ball - 3.3# PROM Sitting Exercise Name Pulleys - Flexion, Abduction Side bilateral Resistance AAROM- near full ROM end range Equipment Used cued humeral ER 120-180 deg ABD- no strain felt Reps/Minutes x20 reps, 2 SH hold Comments cued slow pacing and pause stretch end range Standing Exercises Body Blade Standing Exercise Name Body Blade - punching fwd, FF through range 45>90 deg Side right Resistance Yellow Reps/Minutes 30 SH punch, FF 5 reps Comments 2-3/10 discomfort IR Standing Exercise Name Standing IR /c pulleys Side right Reps/Minutes x15 reps, Hold end feel 10 SH Comments tactile support set up and direction performance Wall slides Standing Exercise Name Forearm wall slides - 12, 3, 5 o'clock Side right Resistance Lv 2 loop in hands Reps/Minutes x15 each direction Comments cued lean into wall during FF 12 o/clock for AAROM & strength Abduction Standing Exercise Name Shoulder Abduction isometric small range Side right Resistance Lv 3>2 under foot Reps/Minutes 2 SH x5 reps Comments Pain-free ROM Tb 64 deg, AROM 115 deg 3/10 pain Flexion Standing Exercise Name Shoulder Flexion Side right Resistance Lv 3>2 band under foot Comments Pain-free ROM 60 deg TB, AROM 93 deg /c pain Self-Care/Home Management Treatment Education Patient Education Home Exercise Program Other Education ed [place] shirt R arm 2nd for opportunity for funcitonal AROM. PT-OP-T Assessment and Plan Start: 05/27/24 16:54 Freq: Status: Active Protocol: Document 06/24/24 10:37 SP (Rec: 06/24/24 11:17 SP [id number]) Physical Therapy Assessment Goals Three Impairment Pt displays weakness in R shoulder, with MMT 3-/5 in flexion and abduction [facility] Goal (LTG) Pt to demonstrate right shoulder MMT of at least 4/5 with flexion, abduction, and external rotation in order to improve right GH joint stability LTG Duration 07/27/24 Two Impairment Right shoulder AROM limited to 110? flexion and 103? abduction [facility] Goal (LTG) Pt to improve pain-free right shoulder ROM to >120? in both flexion and extension in order to improve overhead functional mobility with admissions coordinator. LTG Duration 07/27/24 One Impairment Pt does not have an appropriate home exercise program Short Term Goal (STG) Pt to be independent and compliant with an appropriate HEP 06/02/24: supine serratus press AROM vs wt, FF use dowel, sit> supine chest press, pulleys, stand ER TB> , resisted UE walk. STG Duration 06/27/24 progressing 06/02/24 Assessment Summary Assessment Pt improved FF effort wall slides/clocks, cued trunk lean into wall for increased FF AAROM with strengthening support. Tactile cues for set up and proper form IR use pulleys, improved ROM after. Discussed giving self opportunity don shirt RUE second for improving AROM, able to do motion end todays tx. Pt was able to perform R shld AROM FF R 93 deg and ABD 115 deg with pain reports end range tx. Is performing resisted isometric painfree range: FF 60 deg and ABD 64 deg to support strengthening as instructed HEP. Physical Therapy Plan Frequency and Duration Frequency of Treatment 2x/Week Plan of Care Start Date 05/27/24 Plan of Care End Date 07/27/24 Therapeutic Interventions Therapeutic Interventions Home Exercise Program,Joint Mobilizations,Manual Therapy, Neuromuscular Re-education, Patient/Caregiver Education, Self-Care/Home Management,Soft Tissue Mobilization, Therapeutic Activities, Therapeutic Exercises Modalities Cold Pack/Ice Massage,Electric Stimulation,Hot Packs, Ultrasound Next Visit Focus/Plan Next Note Type Treatment Note Next Visit Plan *Next tx trial AROM in sidelying against gravity. HEP: supine serratus press, FF use dowel, sit chest press, pulleys, stand ER TB, resisted UE walk and clock. POC: PROM, AROM, shoulder strengthening, joint stabilization
--- NOTE | 2024-06-30 10:34 | PT.OTN ---
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 Pt reports he doesn't remember a specific injury, but does note around the time his pain began, he had been working on tearing down and putting back up a car port. Shoulder has improved a bit since the pain began in October, but is still quite limited with overhead motion, and notes his shoulder limits his golf swing. Admits that even lifting a coffee cup with his right arm is a bit of a struggle. Pain and stiffness is worse in the morning, admits that he has to use his left hand to lift his right arm up, but it eases up throughout the day, and he gets more use out of it. Prior Treatments and Tests Shoulder x-ray: IMPRESSION: AC joint hypertrophy with moderate downward going component. No acute bony abnormality. per Vincenzo Prince M.D. on 02/14/2024 Treatment Goals Patient/Caregiver Goals Improve R shoulder function PT-OP-C Subjective Start: 05/27/24 16:54 Freq: Status: Active Protocol: Document 06/30/24 09:48 SP (Rec: 06/30/24 10:36 SP [id number]) OP-PT Subjective Patient Comments Patient Comments Pt reports still having pain sleeping, can't lay on R side, needs get up. Really wants to get better at reaching over head and out to side higher. PT-OP-E Functional Tests Start: 05/27/24 16:54 Freq: Status: Active Protocol: Document 05/27/24 13:45 DCW (Rec: 05/27/24 17:25 DCW [id number]) Functional Tests Apley's Scratch Test Action 1- Left Posterior opposite shoulder Action 1- Right Lateral opposite shoulder Action 2- Left T4 Action 2- Right T4 Action 3- Left T6 Action 3- Right T9 PT-OP-K Range of Motion Start: 05/27/24 16:54 Freq: Status: Active Protocol: Document 05/27/24 13:45 DCW (Rec: 05/27/24 17:25 DCW [id number]) Shoulder Goniometric Range of Motion Shoulder Right Passive Testing Position Supine Flexion 160 Abduction 160 External Rotation at 45 degrees 45 Abduction Internal Rotation 55 Right Active Testing Position Sitting Flexion 110 Abduction 103 External Rotation at 0 degrees Abduction 66 Internal Rotation Behind Back (text) T9 Left Active Testing Position Sitting Flexion 147 Abduction 139 External Rotation at 0 degrees Abduction 62 Internal Rotation Behind Back (text) T6 PT-OP-L Special Tests Start: 05/27/24 16:54 Freq: Status: Active Protocol: Document 05/27/24 13:45 DCW (Rec: 05/27/24 17:25 DCW [id number]) Special Tests Shoulder Special Tests Sulcus Test Results Negative Passive ER Rotator Cuff Test Results Negative Painful Arc Test Results Positive R Lift-Off Rotator Cuff Test Results Positive R Grind Labrum Test Results Negative [place] Impingement Test Results Negative Empty Can Test Results Negative Drop Arm Rotator Cuff Test Results Positive R Clunk Test Test Results Negative Belly Press Test Results Negative Apprehension Test Test Results Positive R PT-OP-M Strength Start: 05/27/24 16:54 Freq: Status: Active Protocol: Document 05/27/24 13:45 DCW (Rec: 05/27/24 17:25 DCW [id number]) Shoulder Strength Shoulder Manual Muscle Testing Right Flexion 3- Fair- Abduction (C5) 3- Fair- External Rotation 3 Fair Internal Rotation 5 Normal Left Flexion 4 Good Abduction (C5) 4 Good External Rotation 5 Normal Internal Rotation 5 Normal PT-OP-Q Treatments Start: 05/27/24 16:54 Freq: Status: Active Protocol: Document 06/30/24 09:48 SP (Rec: 06/30/24 10:36 SP [id number]) Therapeutic Exercises Sidelying Exercises ABD Sidelying Exercise Name reviewed HEP Side right Resistance AROM> 1# D2# DB Reps/Minutes 10 each Comments cued stacked on side, slight press away & ER if needed for pnfree range open book Sidelying Exercise Name Reviewed HEP Side right Resistance AROM Equipment Used LOng arm Reps/Minutes 10 Comments cued press away for scap engagment support. straight elbow FF Sidelying Exercise Name reviewed for HEP Resistance AROM Equipment Used L SL x10 reps Comments cued humeral ER into mid range , improved OH aprpox 170 deg ff ER Sidelying Exercise Name reviewed HEP Side right Resistance AROM> 1# DB (trialed 2# to heavy) Equipment Used towel roll under arm Reps/Minutes 5 reps x2 sets Comments improved range with reps, monitor painfree range- quivering mus posterior sh Sitting Exercises eccentric FF & ABD Sitting Exercise Name added to HEP: FF and ABD ( declined hO) Resistance Tb #3, #5 purple Equipment Used seated in mesh chair rear facing FF, angled for ABD Reps/Minutes 20 each Comments cued slow eccentrick control slow and quick Standing Exercises AROM Standing Exercise Name FF & ABD Side right Reps/Minutes 5 reps each Comments cued serratus and scap engagement eccentric control for support- less pain Manual Therapy Treatment Consent Patient gave verbal consent for manual Yes treatment Joint Mobilizations R scapulothoracic Joint tactiles cues during L SL ther ex Direction UR, inferior glide, protraction small range needed Body Position L SL PT-OP-T Assessment and Plan Start: 05/27/24 16:54 Freq: Status: Active Protocol: Document 06/30/24 09:48 SP (Rec: 06/30/24 10:36 SP [id number]) Physical Therapy Assessment Goals Three Impairment Pt displays weakness in R shoulder, with MMT 3-/5 in flexion and abduction Assisted Goal (LTG) Pt to demonstrate right shoulder MMT of at least 4/5 with flexion, abduction, and external rotation in order to improve right GH joint stability LTG Duration 07/27/24 Two Impairment Right shoulder AROM limited to 110? flexion and 103? abduction [place] Goal (LTG) Pt to improve pain-free right shoulder ROM to >120? in both flexion and extension in order to improve overhead functional mobility with airways control specialist. LTG Duration 07/27/24 One Impairment Pt does not have an appropriate home exercise program Short Term Goal (STG) Pt to be independent and compliant with an appropriate HEP 06/02/24: supine serratus press AROM vs wt, FF use dowel, sit> supine chest press, pulleys, stand ER TB> , resisted UE walk. STG Duration 06/27/24 progressing 06/02/24 Assessment Summary Assessment Pt responded well to education and tactile cues for scapular slight protraction during L sidelying FF and abd mobility, was able to increase resistance during ER 1 # DB and ABD 2# DB for continued strength in gravity assisted positioning. REviewed eccentric FF and ABD with theraband resistance as alternative under tension support to assist progress over head activities that patient want to return to doing again to reach up in his cupboards. By the end of the treatment pt was ableto reach overhead into FF and ABD with cues for serratus press and rhomboid facilitation needed during midrange support lift and lower with decreased lateral shoulder pain reported . Physical Therapy Plan Frequency and Duration Frequency of Treatment 2x/Week Plan of Care Start Date 05/27/24 Plan of Care End Date 07/27/24 Therapeutic Interventions Therapeutic Interventions Home Exercise Program,Joint Mobilizations,Manual Therapy, Neuromuscular Re-education, Patient/Caregiver Education, Self-Care/Home Management,Soft Tissue Mobilization, Therapeutic Activities, Therapeutic Exercises Modalities Cold Pack/Ice Massage,Electric Stimulation,Hot Packs, Ultrasound Next Visit Focus/Plan Next Note Type Treatment Note Next Visit Plan Continue scapular support during FF and ABD, recheck sidelying HEP for open chain activities. HEP: supine serratus press, FF use dowel, sit chest press, pulleys, stand ER TB, resisted UE walk and clock, side ER/ ABD/FF/HABD. POC: PROM, AROM, shoulder strengthening, joint stabilization
--- NOTE | 2024-07-06 10:29 | PT.OTN ---
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 Pt reports he doesn't remember a specific injury, but does note around the time his pain began, he had been working on tearing down and putting back up a car port. Shoulder has improved a bit since the pain began in October, but is still quite limited with overhead motion, and notes his shoulder limits his golf swing. Admits that even lifting a coffee cup with his right arm is a bit of a struggle. Pain and stiffness is worse in the morning, admits that he has to use his left hand to lift his right arm up, but it eases up throughout the day, and he gets more use out of it. Prior Treatments and Tests Shoulder x-ray: IMPRESSION: AC joint hypertrophy with moderate downward going component. No acute bony abnormality. per Vincenzo Prince M.D. on 02/14/2024 Treatment Goals Patient/Caregiver Goals Improve R shoulder function PT-OP-C Subjective Start: 05/27/24 16:54 Freq: Status: Active Protocol: Document 07/06/24 09:51 SP (Rec: 07/06/24 10:37 SP [id number]) OP-PT Subjective Patient Comments Patient Comments Pt reports was sore after last tx but believes is helpful for gaining ROM. Feels gaining more ROM but sleeping is still not great. He reports still sleeping about 3-4 hrs before wakes up with achiness discomfort needs get up to move and goes away. Does have pain when reaches out quick. PT-OP-E Functional Tests Start: 05/27/24 16:54 Freq: Status: Active Protocol: Document 05/27/24 13:45 DCW (Rec: 05/27/24 17:25 DCW [id number]) Functional Tests Apley's Scratch Test Action 1- Left Posterior opposite shoulder Action 1- Right Lateral opposite shoulder Action 2- Left T4 Action 2- Right T4 Action 3- Left T6 Action 3- Right T9 PT-OP-K Range of Motion Start: 05/27/24 16:54 Freq: Status: Active Protocol: Document 05/27/24 13:45 DCW (Rec: 05/27/24 17:25 DCW [id number]) Shoulder Goniometric Range of Motion Shoulder Right Passive Testing Position Supine Flexion 160 Abduction 160 External Rotation at 45 degrees 45 Abduction Internal Rotation 55 Right Active Testing Position Sitting Flexion 110 Abduction 103 External Rotation at 0 degrees Abduction 66 Internal Rotation Behind Back (text) T9 Left Active Testing Position Sitting Flexion 147 Abduction 139 External Rotation at 0 degrees Abduction 62 Internal Rotation Behind Back (text) T6 PT-OP-L Special Tests Start: 05/27/24 16:54 Freq: Status: Active Protocol: Document 05/27/24 13:45 DCW (Rec: 05/27/24 17:25 DCW [id number]) Special Tests Shoulder Special Tests Sulcus Test Results Negative Passive ER Rotator Cuff Test Results Negative Painful Arc Test Results Positive R Lift-Off Rotator Cuff Test Results Positive R Grind Labrum Test Results Negative [place] Impingement Test Results Negative Empty Can Test Results Negative Drop Arm Rotator Cuff Test Results Positive R Clunk Test Test Results Negative Belly Press Test Results Negative Apprehension Test Test Results Positive R PT-OP-M Strength Start: 05/27/24 16:54 Freq: Status: Active Protocol: Document 05/27/24 13:45 DCW (Rec: 05/27/24 17:25 DCW [id number]) Shoulder Strength Shoulder Manual Muscle Testing Right Flexion 3- Fair- Abduction (C5) 3- Fair- External Rotation 3 Fair Internal Rotation 5 Normal Left Flexion 4 Good Abduction (C5) 4 Good External Rotation 5 Normal Internal Rotation 5 Normal PT-OP-Q Treatments Start: 05/27/24 16:54 Freq: Status: Active Protocol: Document 07/06/24 09:51 SP (Rec: 07/06/24 10:37 SP [id number]) Therapeutic Exercises Sidelying Exercises ABD Sidelying Exercise Name reviewed HEP Side right Resistance AROM> 1# D2# DB Reps/Minutes 10 each Comments cued protraction needed for fluid painfree ROM, humeral ER if needed open book Sidelying Exercise Name Reviewed HEP Side right Resistance AROM Equipment Used LOng arm Reps/Minutes 10 Comments cued protraction needed for fluid painfree ROM FF Sidelying Exercise Name reviewed for HEP Side right Resistance AROM Equipment Used L SL x10 reps Reps/Minutes x10 Comments cued protraction into mid range, lessens clicking and pain reduction Sitting Exercises ER/IR Sitting Exercise Name ER/IR in 90/90 Side right Resistance Red ball - 3.3# painfree range Equipment Used mirror front self feedback posture Reps/Minutes 2x15 Comments cued sit away from chair back, tall /c Rhomboid fac squeeze PROM Sitting Exercise Name Pulleys - Flexion, Abduction Side bilateral Resistance AAROM- near full ROM end range Equipment Used 90 deg ABD starts feel pain Reps/Minutes x20 reps, 2 SH hold Comments cued slow pacing and pause stretch end range stretch Standing Exercises Scaption Side right Resistance AROM approx 170 deg Equipment Used front mirror for self posture feedback Reps/Minutes x8 reps Comments pain approx 80deg but protraction can get passed then better OH Body Blade Standing Exercise Name Body Blade - punching fwd, FF through range 45>90 deg Side right Resistance Yellow Reps/Minutes 30 SH punch, FF 5 reps ( uncomfortable but not super painful) Comments 2-3/10 discomfort and dull ache Manual Therapy Treatment Soft Tissue Mobilization R Shoulder Body Location Parascapulars, Distal Pec, bicep Mobilization Type Strumming Body Position seated Joint Mobilizations R scapulothoracic Joint tactiles cues during L SL ther ex Direction UR, inferior glide, protraction small range needed Body Position L SL Self-Care/Home Management Treatment Education Patient Education Body Mechanics,Home Exercise Program,Joint Protection,Pain Management,Posture Other Education anatomy use brendon mechanics of scapulothoracic and GH jts for better form HEP PT-OP-T Assessment and Plan Start: 05/27/24 16:54 Freq: Status: Active Protocol: Document 07/06/24 09:51 SP (Rec: 07/06/24 10:37 SP [id number]) Physical Therapy Assessment Goals Three Impairment Pt displays weakness in R shoulder, with MMT 3-/5 in flexion and abduction [facility] Goal (LTG) Pt to demonstrate right shoulder MMT of at least 4/5 with flexion, abduction, and external rotation in order to improve right GH joint stability LTG Duration 07/27/24 Two Impairment Right shoulder AROM limited to 110? flexion and 103? abduction [facility] Goal (LTG) Pt to improve pain-free right shoulder ROM to >120? 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 LTG Duration 07/27/24 One Impairment Pt does not have an appropriate home exercise program Short Term Goal (STG) Pt to be independent and compliant with an appropriate HEP 06/02/24: supine serratus press AROM vs wt, FF use dowel, sit> supine chest press, pulleys, stand ER TB> , resisted UE walk. STG Duration 06/27/24 progressing 06/02/24 Assessment Summary Assessment Pt improves range and less pain post manual and cues for protraction and R humeral ER needed duirng mid range FF, ABD HABD L SL with improved periscapular engagement. Still challenged seated and standing ROM against gravity, pain mid range 3-4/10 anteriolateral proximal R humerus. Continues to have achiness and pain L side sleeping and has to get up and sleep in recliner. Discussed PT will complete PN next and maybe request orthopedic consult and MRI for further assessment of R shld. Physical Therapy Plan Frequency and Duration Frequency of Treatment 2x/Week Plan of Care Start Date 05/27/24 Plan of Care End Date 07/27/24 Therapeutic Interventions Therapeutic Interventions Home Exercise Program,Joint Mobilizations,Manual Therapy, Neuromuscular Re-education, Patient/Caregiver Education, Self-Care/Home Management,Soft Tissue Mobilization, Therapeutic Activities, Therapeutic Exercises Modalities Cold Pack/Ice Massage,Electric Stimulation,Hot Packs, Ultrasound Other Referrals/Consults Referrals/Consults Recommended Discussed with pt potential request orthopedic consult and MRI for further assessment of R shld. Next Visit Focus/Plan Next Note Type Progress Note Next Visit Plan Next tx PN 10th visit. POC: Continue scapular support during FF and ABD, recheck sidelying HEP for open chain activities. HEP: supine serratus press, FF use dowel, sit chest press, pulleys, stand ER TB, resisted UE walk and clock, side ER/ ABD/FF/HABD. POC: PROM, AROM, shoulder strengthening, joint stabilization
--- NOTE | 2024-07-14 14:20 | PT.OPPN ---
Current Diagnoses Pain in right shoulder (07/14/24) Stiffness of right shoulder, not elsewhere classified (07/14/24) Other shoulder lesions, right shoulder (07/14/24) Physical Therapy Progress Note PT-OP-A Visit Information Start: 05/27/24 16:54 Freq: Status: Active Protocol: Document 07/14/24 13:45 DCW (Rec: 07/14/24 14:18 DCW [id number]) Out-Patient Physical Therapy Visit Information Visit Information Visit Type Discharge Summary Visit Start Time 13:45 Visit Stop Time 14:15 Visit Number 10 Number of TELEGRAPH AND TELETYPE OPERATOR Visits 0 Evaluation Information Evaluation Date 05/27/24 PT-OP-B Current Condition Start: 05/27/24 16:54 Freq: Status: Active Protocol: Document 05/27/24 13:45 DCW (Rec: 05/27/24 17:25 DCW [id number]) Current Condition History of Current Condition Onset Date Six month history Current Complaints Right shoulder pain History of Current Condition Pt is a 74 year old male presenting with a six month history of right shoulder pain . Pt reports he doesn't remember a specific injury, but does note around the time his pain began, he had been working on tearing down and putting back up a car port. Shoulder has improved a bit since the pain began in October, but is still quite limited with overhead motion, and notes his shoulder limits his golf swing. Admits that even lifting a coffee cup with his right arm is a bit of a struggle. Pain and stiffness is worse in the morning, admits that he has to use his left hand to lift his right arm up, but it eases up throughout the day, and he gets more use out of it. Prior Treatments and Tests Shoulder x-ray: IMPRESSION: AC joint hypertrophy with moderate downward going component. No acute bony abnormality. per Vincenzo Prince M.D. on 02/14/2024 Treatment Goals Patient/Caregiver Goals Improve R shoulder function PT-OP-C Subjective Start: 05/27/24 16:54 Freq: Status: Active Protocol: Document 07/14/24 13:45 DCW (Rec: 07/14/24 14:18 DCW [id number]) OP-PT Subjective Patient Comments Patient Comments There are days where I feel like it's gotten a lot better, but then the last few nights, I can barely sleep it's so sore. PT-OP-E Functional Tests Start: 05/27/24 16:54 Freq: Status: Active Protocol: Document 05/27/24 13:45 DCW (Rec: 05/27/24 17:25 DCW [id number]) Functional Tests Apley's Scratch Test Action 1: The subject is instructed to touch the opposite shoulder with his/her hand. This motion checks Glenohumeral adduction, internal rotation , horizontal adduction and scapular protraction Action 2: The subject is instructed to place his/her arm overhead and reach behind the neck to touch his/her upper back. This motion checks Glenohumeral abduction, external rotation and scapular upward rotation and elevation. Action 3: The subject puts his/her hand on the lower back and reaches upward as far as possible. This motion checks glenohumeral adduction, internal rotation and scapular retraction with downward rotation Action 1- Left Posterior opposite shoulder Action 1- Right Lateral opposite shoulder Action 2- Left T4 Action 2- Right T4 Action 3- Left T6 Action 3- Right T9 PT-OP-K Range of Motion Start: 05/27/24 16:54 Freq: Status: Active Protocol: Document 07/14/24 13:45 DCW (Rec: 07/14/24 14:20 DCW [id number]) Shoulder Goniometric Range of Motion Shoulder Measured in Degrees Right Active Testing Position Sitting Flexion 106 Abduction 122 External Rotation at 0 degrees Abduction 59 Internal Rotation Behind Back (text) L1 PT-OP-L Special Tests Start: 05/27/24 16:54 Freq: Status: Active Protocol: Document 05/27/24 13:45 DCW (Rec: 05/27/24 17:25 DCW [id number]) Special Tests Shoulder Special Tests Sulcus Test Results Negative Passive ER Rotator Cuff Test Results Negative Painful Arc Test Results Positive R Lift-Off Rotator Cuff Test Results Positive R Grind Labrum Test Results Negative [place] Impingement Test Results Negative Empty Can Test Results Negative Drop Arm Rotator Cuff Test Results Positive R Clunk Test Test Results Negative Belly Press Test Results Negative Apprehension Test Test Results Positive R PT-OP-M Strength Start: 05/27/24 16:54 Freq: Status: Active Protocol: Document 05/27/24 13:45 DCW (Rec: 05/27/24 17:25 DCW [id number]) Shoulder Strength Shoulder Manual Muscle Testing Right Flexion 3- Fair- Abduction (C5) 3- Fair- External Rotation 3 Fair Internal Rotation 5 Normal Left Flexion 4 Good Abduction (C5) 4 Good External Rotation 5 Normal Internal Rotation 5 Normal PT-OP-T Assessment and Plan Start: 05/27/24 16:54 Freq: Status: Active Protocol: Document 07/14/24 13:45 DCW (Rec: 07/14/24 14:18 DCW [id number]) Physical Therapy Assessment Goals Three Impairment Pt displays weakness in R shoulder, with MMT 3-/5 in flexion and abduction Interface Control Officer Goal (LTG) Pt to demonstrate right shoulder MMT of at least 4/5 with flexion, abduction, and external rotation in order to improve right GH joint stability LTG Duration 07/27/24 Two Impairment Right shoulder AROM limited to 110? flexion and 103? abduction [facility] Goal (LTG) Pt to improve pain-free right shoulder ROM to >120? in both flexion and extension in order to improve overhead functional mobility with rn womens health. LTG Duration 07/27/24 One Impairment Pt does not have an appropriate home exercise program Short Term Goal (STG) Pt to be independent and compliant with an appropriate HEP 06/02/24: supine serratus press AROM vs wt, FF use dowel, sit> supine chest press, pulleys, stand ER TB> , resisted UE walk. STG Duration 06/27/24 progressing 06/02/24 Assessment Summary Assessment Pt has made fairly poor overall progress. Abduction ROM has improved slightly since initial evaluation, however flexion, ER, and IR have all declined slightly. Pt has been compliant with his HEP, has been regularly working on mobility and strength. At this point, will likely benefit from return back to PCP, may benefit from axial imaging to rule in-out soft tissue damage. Discharge from skilled PT at this time. Physical Therapy Plan Frequency and Duration Frequency of Treatment 2x/Week Plan of Care Start Date 05/27/24 Plan of Care End Date 07/27/24 Therapeutic Interventions Therapeutic Interventions Home Exercise Program,Joint Mobilizations,Manual Therapy, Neuromuscular Re-education, Patient/Caregiver Education, Self-Care/Home Management,Soft Tissue Mobilization, Therapeutic Activities, Therapeutic Exercises Modalities Cold Pack/Ice Massage,Electric Stimulation,Hot Packs, Ultrasound Discharge Physical Therapy Discharge Reasons Plateau in Progress Next Visit Focus/Plan Next Note Type Discharge Summary
== END 2024-07-21 08:24 | disposition home or self-care (01) ==
LOC: PHYS 13:45
PROVIDERS: Family Provider Family Medicine; PCP Family Medicine; Referring Provider Family Medicine; Visit Provider Family Medicine
DX: M75.81 Other shoulder lesions, right shoulder (principal); M25.511 Pain in right shoulder; M25.611 Stiffness of right shoulder, not elsewhere classified
CPT/HCPCS: 97110; 97140; 97161

== ENCOUNTER → 2024-08-12 11:31 | Outpatient (CLI) | payer MEDICARE, SELFPAY ==
--- NOTE | 2024-08-12 12:42 | DI.MRI.S_ITS ---
PROCEDURE: MR SHOULDER RT WO CON INDICATIONS: Adhesive capsulitis of right shoulder TECHNIQUE: Noncontrast oblique coronal T2 fast spin echo with fat saturation, oblique sagittal T1 spin echo and T2 fast spin echo with fat saturation, axial T1 spin echo and T2 fast spin echo with fat saturation through the shoulder. COMPARISON: None. FINDINGS: Image quality: Excellent. Rotator cuff: Moderate grade articular surface partial-thickness tear involving distal supraspinatus at its insertion on the humeral head is seen extending to musculotendinous junction. Full-thickness rupture involving posterior fibers of distal supraspinatus at its insertion on the humeral head with up to 1.4 cm medial retraction of torn tendon fibers and a fluid-filled gap measures 1 cm in AP dimension. Low to moderate grade articular surface partial-thickness tear involving distal infraspinatus at its insertion on humeral head. Low-grade intrasubstance partial-thickness tear involving distal subscapularis. Sagittal images demonstrate mild to moderate supraspinatus muscle atrophy. Bones and bursae: No bone marrow contusions or fractures. Moderate acromioclavicular joint osteoarthritic changes are seen with joint space narrowing and downward osteophyte formation depressing on musculotendinous junction of supraspinatus. Type 2 acromion without an os acromiale. Moderate subacromial subdeltoid bursal fluid is seen, no loose bodies. Capsule and soft tissues: Fraying of superior anterior labrum with T2 hyperintense signal suggestive of superior anterior glenoid labral tear. The long head of the biceps tendon demonstrates normal location and morphology. The rotator interval appears normal, without fibrosis. The coracohumeral ligament is normal in thickness. IMPRESSION: 1. Moderate grade articular surface partial-thickness tear involving distal supraspinatus extending to musculotendinous junction with full-thickness rupture involving posterior fibers of distal supraspinatus at its insertion on the humeral head and up to 1.4 cm medial retraction of torn tendon fibers. There is a fluid-filled gap measures 1 cm in AP dimension. Mild to moderate supraspinatus muscle atrophy. 2. Low to moderate grade articular surface partial-thickness tear involving distal infraspinatus. Low-grade intrasubstance partial-thickness tear involving distal subscapularis. 3. Moderate acromioclavicular joint osteoarthritis. No fracture or dislocation. Moderate subacromial subdeltoid bursal fluid, no loose bodies. Suggestion of superior anterior glenoid labral tear. Dictated by: Terrance Go M.D. on 08/12/2024 at 15:34 Approved by: Terrance Go M.D. on 08/12/2024 at 15:47
== END ==
PROVIDERS: Family Provider Family Medicine; PCP Family Medicine; Referring Provider Family Medicine; Visit Provider Family Medicine
DX: M75.121 Complete rotator cuff tear or rupture of right shoulder, not specified as traumatic (principal); M75.111 Incomplete rotator cuff tear or rupture of right shoulder, not specified as traumatic; M62.511 Muscle wasting and atrophy, not elsewhere classified, right shoulder; M19.011 Primary osteoarthritis, right shoulder; M75.01 Adhesive capsulitis of right shoulder
CPT/HCPCS: 73221

== ENCOUNTER → 2025-08-20 08:52 | Outpatient (CLI) | payer MEDICARE, SELFPAY ==
[2025-08-20 09:31] LABS: Add Manual Diff / Slide Review NO; Hematocrit 46.3 % (41-53); Hemoglobin 15.7 g/dL (13.5-17.5); Lymphocytes Absolute Auto 2200 /uL (1100-4500); Mean Corpuscular HGB Conc 33.8 % (30-36); Mean Corpuscular Hemoglobin 30.8 PG (26-34); Mean Corpuscular Volume 91.1 fL (80-100); Platelet Count 206 X10^3/uL (150-400)
[2025-08-20 10:01] LABS: Alanine Aminotransferase 23 IU/L (<50); Albumin 4.6 g/dL (3.5-5.0); Albumin Globulin Ratio 1.6 (1.0-2.8); Alkaline Phosphatase 78 U/L (38-126); Blood Urea Nitrogen 21 mg/dL (9-20); Calcium 9.5 mg/dL (8.4-10.2); Carbon Dioxide 27 mmol/L (22-32); Chloride 106 mmol/L (98-107); Cholesterol 197 mg/dL (140-199); Estimated Glomerular Filt Rate > 60 mL/min (>60); Globulin 2.9 g/dL (1.7-4.1); Glucose 98 mg/dL (70-99); HDL Cholesterol 56 mg/dL (40-60); HEMOLYSIS < 15 (0-50); Potassium 4.3 mmol/L (3.4-5.1); Sodium 141 mmol/L (137-145); Total Protein 7.5 g/dL (6.3-8.2); Triglycerides 162 mg/dL (35-150); Uric Acid 6.4 mg/dL (3.5-8.5)
[2025-08-20 10:24] LABS: TSH w/ Reflex to FT4 2.66 uIU/mL (0.47-4.68)
== END ==
PROVIDERS: Family Provider Family Medicine; PCP Family Medicine; Referring Provider Family Medicine; Visit Provider Family Medicine
DX: M1A.09X0 Idiopathic chronic gout, multiple sites, without tophus (tophi) (principal); I10 Essential (primary) hypertension; Z12.5 Encounter for screening for malignant neoplasm of prostate; N40.1 Benign prostatic hyperplasia with lower urinary tract symptoms; R35.1 Nocturia
CPT/HCPCS: 36415; 80053; 80061; 84443; 84550; 85025; G0103